=== PATIENT | female | born 1975 | race Caucasian/White ===

== ENCOUNTER → 2018-02-07 16:59 | Outpatient (CLI) | payer OTHER, SELFPAY ==
[2018-02-12 08:36] LABS: HPV Reflexed? NOT INDICATED
== END ==
PROVIDERS: Visit Provider Obstetrics & Gynecology
DX: Z12.4 Encounter for screening for malignant neoplasm of cervix (principal)
CPT/HCPCS: 88175; G0145

== ENCOUNTER 2018-03-05 15:00 | Outpatient (RCR) | payer OTHER, SELFPAY ==
--- NOTE | 2018-02-07 09:27 | HP.PTEVAL_ITS ---
Patient's Visit Information KIMMIE PENA is a 42 year old F referred to Physical Therapy by Marisel Rowe DO with a diagnosis of Possible HS. Date of Evaluation: 02/07/18 Physical Therapist: Cherelle Luis - Visit Plan Frequency: 2x /Week Duration: 4 Weeks Plan: 2X/ week for 4 weeks for R HS and piriformis stretching, Prone press ups at end range, core stability and postural exercisesm HS strength wtih HEP and modalities PRN - Subjective Subjective: Pt reports that the past year she has had a lot of PF issues worse on the R side and she has been running but now she is having deep pain in her R buttock with sitting. It hurts jumping rope and box jumps and more the abrupt landing and taking off. If she runs for awhile she can not lift her leg up past a certain ( pain in her put with running).... She reports that she does have some achy back pain.... not a huge pain. No pain with sitting but when gets out of the car and by the time she gets up 3 flights of stairs it hurts. IF she is up around the house.... if she walks after a few blocls. She has N&T after been walking or running for awhile. Pt just called and asked to refer to PT. - Pain R buttock pain Pain Intensity (Out of 10): 0 Pain Intensity Range: 5 Comment: With running - Objective Gait: Walks with normal gait pattern. LE MMT: hip flex B 4+/5, B hip abd 4+/5 , B hip ext 4/5, B knee ext 4/5, B knee flex 4/5. Pt is able to heel and toe walk. Pt has normal leg length. Palpation: Tender along the R piriformis and R Ischial Tuberosity. Increase R HS tightness at extremem end range. Tight and slight pain at end range piriformis stretch. Did 3 X 10 prone press ups and was able to stretch R HS into more ROM with ease. Normal L-trunk AROM - Goals Goal 1:: I HEP Goal Time Frame: 4-6 Weeks Goal 2:: Return to running with no R HS pain Goal Time Frame: 4-6 Weeks Goal 3:: Be able to go up and down stairs (3 flights at work) without pain Goal Time Frame: 4-6 Weeks - Rehabilitation Potential Rehabilitation Potential: Good - Anticipated Interventions Thank you for the opportunity to evaluate your patient. For Medicare and Medicare HMO plans, please review the plan of care and approve it. It will need to be FAXED BACK to us at [phone] for Medicare purposes. Please let me know if there are questions or concerns regarding this plan of care. Physician Signature: Date:
--- NOTE | 2018-07-18 08:46 | HP.PT.NRP ---
HP - Discharge Summary (1) - Patient Information September BECKY was seen in my office for initial evaluation on 02/07/18. The following Plan of Care was established for this patient: Initial Frequency: 2x /Week Initial Duration: 4 Weeks This patient was last seen in our office 03/11/18. Pertinent comments regarding their Physical therapy will appear below: DC PT At this point I will be discontinuing this patient from physical therapy. I would be happy to see this patient again in the future if found appropriate by the physician. Thank you! Cherelle Luis, MPT
== END 2018-03-05 19:00 | disposition home or self-care (01) ==
LOC: PT 15:00
PROVIDERS: Family Provider Family Medicine; PCP Family Medicine; Visit Provider Family Medicine
DX: M79.604 Pain in right leg (principal)
CPT/HCPCS: 97110; 97161

== ENCOUNTER → 2018-05-09 08:06 | Outpatient (CLI) | payer OTHER, SELFPAY ==
--- NOTE | 2018-05-09 08:09 | BI_ITS ---
MAMMOGRAPHY - BILATERAL SCREENING REASON FOR EXAM: Female, 42 years old. Routine annual screening examination. PERTINENT HISTORY: Aunt with breast cancer. TECHNIQUE: Digital bilateral breast bozena (3D mammographic acquisition) in the CC and MLO projections. 2-D mediolateral oblique (MLO) and craniocaudad (CC) views of both breasts were obtained. CAD: Full Field Digital Mammography with Computer Added Detection was performed. COMPARISON: Comparison is made with prior mammogram dated December 29, 2012. FINDINGS: Breast Composition: The breasts are heterogeneously dense, which may obscure small masses. There are no dominant masses or suspicious calcifications. No other significant abnormalities are identified. There has been no significant change since the prior study. BI/SCREENING MAMM (CAD), BILAT IMPRESSION: Stable bilateral screening mammogram. Yearly follow-up mammogram recommended. (A) ASSESSMENT CATEGORY: BIRADS Category 1: Negative. A letter regarding these results will be sent to the patient by the facility within 30 days. Approximately 10% of breast cancers are not detected by mammography. A normal mammogram should not delay biopsy of a clinically suspicious abnormality. [id number] Electronically Signed: Josiah Jameson MD at 8:41 EST Tel [phone], Service support ,
== END ==
PROVIDERS: Family Provider Family Medicine; PCP Family Medicine; Referring Provider Obstetrics & Gynecology; Visit Provider Obstetrics & Gynecology
DX: Z12.31 Encounter for screening mammogram for malignant neoplasm of breast (principal)
CPT/HCPCS: 77063; 77067

== ENCOUNTER → 2020-01-26 11:29 | Outpatient (CLI) | payer OTHER, SELFPAY ==
--- NOTE | 2020-01-26 11:37 | RAD_ITS ---
STUDY: X-RAY - RIGHT FOOT CLINICAL: Female, 44 years old. PATIENT DROPPED SOMETHING HEAVY ON TOP OF RIGHT FOOT TODAY. PAIN AND SWELLING TOP OF RIGHT FOOT DISTALLY. TECHNIQUE: 3 view(s) of the foot. COMPARISON: None. FINDINGS: Normal talus, calcaneus, and tarsal bones. Normal visualized subtalar, talonavicular, calcaneocuboid, tarsal and tarsometatarsal articulations. Normal metatarsi. Normal metatarsophalangeal joint of the great toe. Normal tibial and fibular sesamoid bones. Normal interphalangeal joint of the great toe. Normal phalanges of the great toe. Normal second through fifth metatarsophalangeal joints. Normal interphalangeal joints and phalanges of the lesser toes. The soft tissue structures are unremarkable. RAD/Foot min 3 Views IMPRESSION: Normal x-ray examination of the foot. Electronically Signed: Sincere Gilmore MD at 11:59 EDT Tel , Service support ,
== END ==
PROVIDERS: PCP Family Medicine; Referring Provider Family Medicine; Visit Provider Family Medicine
DX: M79.671 Pain in right foot (principal)
CPT/HCPCS: 73630

== ENCOUNTER → 2020-03-11 06:46 | Outpatient (CLI) | payer OTHER, SELFPAY ==
[2017-08-13 17:24] VITALS: BMI 36.1
[2020-03-11 08:05] LABS: ALB/GLOB Ratio 1.2 RATIO (0.9-2.4); AST(SGOT) 20 U/L (15-37); Alanine Aminotransfer ALT/SGPT 25 U/L (13-56); Alkaline Phosphatase 61 U/L (45-117); Anion Gap 4 (5-15); BUN 10 mg/dL (7-18); BUN/Creat Ratio 10.8 RATIO (10-20); Chloride 106 mmol/L (98-107); Cholesterol 156 mg/dL (200); Creatinine, Serum 0.93 mg/dL (0.55-1.02); EST Glomerular Filtration Rate 70 mL/min (>60); Est Glom Filt Rate - Afr Amer 85 mL/min (>60); Globulin 3.4 g/dL (2.2-4.2); Glucose 100 mg/dL (74-106); High Density Lipoprotein 50 mg/dL; Potassium 3.7 mmol/L (3.5-5.1); Protein, Total 7.4 g/dL (6.4-8.2); Sodium Level 136 mmol/L (136-145); Triglycerides 77 mg/dL; Very Low Density Lipoprotein 15 mg/dL (5-40)
== END ==
PROVIDERS: PCP Family Medicine; Visit Provider Family Medicine
DX: Z13.220 Encounter for screening for lipoid disorders (principal); Z13.1 Encounter for screening for diabetes mellitus
CPT/HCPCS: 36415; 80053; 80061

== ENCOUNTER → 2020-04-01 15:03 | Outpatient (CLI) | payer OTHER, SELFPAY ==
--- NOTE | 2020-04-01 15:12 | BI_ITS ---
MAMMOGRAPHY - BILATERAL SCREENING REASON FOR EXAM: Female, 44 years old. Routine annual screening examination. PERTINENT HISTORY: Aunts with breast cancer. TECHNIQUE: Digital bilateral breast johanna (3D mammographic acquisition) in the CC and MLO projections. 2-D mediolateral oblique (MLO) and craniocaudad (CC) views of both breasts were obtained. CAD: Full Field Digital Mammography with Computer Added Detection was performed. COMPARISON: Comparison is made with prior study dated 05/09/2018 and 06/08/2013. FINDINGS: Breast Composition: The breasts are heterogeneously dense, which may obscure small masses. There are no dominant masses or suspicious calcifications. No other significant abnormalities are identified. There has been no significant change since the prior study. BI/SCREEN MAMM (CAD) W/JOHANNA BILAT IMPRESSION: Stable bilateral screening mammogram. Yearly follow-up mammogram recommended. (A) ASSESSMENT CATEGORY: BIRADS Category 1: Negative. A letter regarding these results will be sent to the patient by the facility within 30 days. Approximately 10% of breast cancers are not detected by mammography. A normal mammogram should not delay biopsy of a clinically suspicious abnormality. [id number] Electronically Signed: Josiah Jameson, at 16:03 EDT , Service support ,
== END ==
PROVIDERS: PCP Family Medicine; Referring Provider Family Medicine; Visit Provider Family Medicine
DX: Z12.31 Encounter for screening mammogram for malignant neoplasm of breast (principal)
CPT/HCPCS: 77063; 77067

== ENCOUNTER → 2020-04-14 | Outpatient (CLI) | payer OTHER, SELFPAY ==
[2017-08-13 17:24] VITALS: BMI 36.1
[2020-04-20 13:58] LABS: HPV Reflexed? NOT INDICATED
== END | disposition home or self-care (01) ==
LOC: LABSPEC 04-15 09:09
PROVIDERS: PCP Family Medicine; Visit Provider Obstetrics & Gynecology
DX: Z12.4 Encounter for screening for malignant neoplasm of cervix (principal)
CPT/HCPCS: 88175; G0145

== ENCOUNTER → 2020-05-05 13:24 | Outpatient (CLI) | payer SELFPAY ==
[2020-04-27 15:46] VITALS: BMI 34.9
--- NOTE | 2020-05-05 13:29 | CT_ITS ---
STUDY: CT CHEST WITHOUT CONTRAST REASON FOR EXAM: Female, 44 years old. Calcium screening, family hx cardiac disease. Limited CT Chest over-read ONLY. RADIATION DOSAGE (If Supplied By Facility): CTDIvol = ( 12.19 ) mGy, DLP = ( 170.66 ) mGycm TECHNIQUE: Transaxial imaging was performed without the administration of intravenous contrast material. Individualized dose optimization techniques were used for this CT. COMPARISON: None. FINDINGS: Minimal linear scarring and/or atelectasis at the left lung base. There is no demonstrated pleural abnormality. Normal heart and pericardium. Normal mediastinum. Normal hilar regions. Normal unenhanced pulmonary arteries. Normal aorta arch and descending thoracic aorta. Normal osseous structures. Small hiatal hernia. CT/Limited Chest CT w/CCTA IMPRESSION: Minimal linear scarring and/or atelectasis at the left lung base.. Electronically Signed: Josiah Jameson, at 8:23 EST , Service support ,
[2020-05-05 13:32] VITALS: BP 158/93; PULSE 69; RESP 16; O2SAT 98; BMI 38.2
--- NOTE | 2020-05-05 15:52 | CA.SCORE ---
Calcium Scoring Date of Study:: 05/05/20 Coronary Calcium Scoring: High-resolution Computed Tomographic imaging of the chest was performed on [05/05/2020], with particular attention paid to the coronary arteries. Images from the examination were analyzed for the presence and extent of coronary artery calcification , using coronary calcium quantification software. The patient tolerated the procedure well and there were no complications. The results of the coronary calcification analysis are provided below. - Findings Left Main (LM): 0 Left Anterior Descending (LAD): 0 Left Circumflex (LCX): 0 Right Coronary Artery (RCA): 0 Total Agatston Score: 0 Percentile Rankin Calcium Scoring Interpretation: 0 No identifiable atherosclerotic plaque. Very low cardiovascular disease risk. <5% chance of presence coronary artery disease A Negative Examination 1-10 Minimal Plaque burden. Significant coronary artery disease very unlikely. 11-100 Mild plaque burden. Likely mild or minimal coronary atherosclerosis. 101-400 Moderate plaque burden Moderate non-obstructive coronary artery disease highly likely. Over 400 Extensive plaque burden. High likelihood of at least one significant coronary stenosis (>50% diameter) Calcium Score: 0 Negative Examination - The above suggests no atherosclerotic plaquing. A full evaluation of cardiac risk would include an assessment of all conventional risk factors. The above is suggestive of a very low cardiovascular disease risk.
== END ==
PROVIDERS: PCP Family Medicine; Referring Provider Internal Medicine Cardiovascular Disease; Visit Provider Internal Medicine Cardiovascular Disease
DX: Z13.6 Encounter for screening for cardiovascular disorders (principal); Z82.49 Family history of ischemic heart disease and other diseases of the circulatory system
CPT/HCPCS: 75571; 76380

== ENCOUNTER → 2020-05-20 13:49 | Outpatient (CLI) | payer OTHER, SELFPAY ==
[2020-05-05 13:32] VITALS: BMI 38.2
--- NOTE | 2020-05-20 13:54 | ECHOD_ITS ---
Version 2 Reason For Study: HYPERTENSION Procedure This was a 2D Doppler, Color Flow transthoracic echocardiogram. Exam performed in department. Left Ventricle Normal LV size. Left ventricular systolic function is normal. The estimated ejection fraction is 60 %. No regional wall motion abnormalities noted. Right Ventricle Normal RV size. Normal systolic function. Atria Normal left atrium. Normal right atrium. Bubble contrast study negative for right to left interatrial shunt. Mitral Valve Normal mitral valve. Trivial mitral valve insufficiency. Tricuspid Valve Normal tricuspid valve. Mild tricuspid valve insufficiency. Aortic Valve Normal aortic valve. Trisinus/trileaflet aortic valve. Pulmonic Valve Normal pulmonic valve. Great Vessels Normal aortic root. The pulmonary artery is normal size. Normal inferior vena cava. Pericardium/Pleural No pericardial effusion. Medication 22 gauge I.V. with prn adaptor inserted into right arm. Performed a rapid injection of agitated mix of 9 cc saline and 1cc air to assess for atrial septal defect. MMode/2D Measurements & Calculations LVIDd: 5.3 cm IVSd: 0.85 cm Ao root diam: 3.3 cm LVIDs: 3.4 cm LVPWd: 0.94 cm RVDd: 3.5 cm FS: 35.8 % LAV(MOD-bp): 50.6 ml LVAd ap4: 35.9 cm2 SV(MOD-sp4): 69.8 ml LAV(MOD-bp) Indexed: 26.4 ml/m2 EDV(MOD-sp4): 118.5 ml LAV(MOD-sp2): 49.2 ml EDV(sp4-el): 124.3 ml LAV(MOD-sp4): 49.3 ml LVAs ap4: 20.4 cm2 ESV(MOD-sp4): 48.7 ml ESV(sp4-el): 48.2 ml EF(MOD-sp4): 58.9 % EF(sp4-el): 61.2 % SV(sp4-el): 76.1 ml LA A4 area: 18.3 cm2 LA dimension(2D): 3.4 cm RA A4 area: 16.4 cm2 Time Measurements MV dec time: 0.19 sec Doppler Measurements & Calculations MV E max shravan: 72.2 cm/sec Lat Peak E' Shravan: 16.3 cm/sec Med Peak E' Shravan: 11.4 cm/sec MV A max shravan: 49.5 cm/sec E/E' lat: 4.4 E/E' med: 6.3 MV E/A: 1.5 Ao V2 max: 134.6 cm/sec LV V1 max: 105.1 cm/sec PA V2 max: 99.3 cm/sec Ao max P.3 mmHg LV V1 max P.4 mmHg TR max shravan: 235.2 cm/sec TR max P.1 mmHg Interpretation Summary Normal LV size. Left ventricular systolic function is normal. The estimated ejection fraction is 60 %. Bubble contrast study negative for right to left interatrial shunt. Mild tricuspid valve insufficiency. Ordering Physician: Sreekanth Garcia Referring Physician: LULU CONNOR Performed By: Traci Petersen RDCS
== END ==
PROVIDERS: PCP Family Medicine; Referring Provider Internal Medicine Cardiovascular Disease; Visit Provider Internal Medicine Cardiovascular Disease
DX: R03.0 Elevated blood-pressure reading, without diagnosis of hypertension (principal)
CPT/HCPCS: 93306; A4216

== ENCOUNTER 2020-10-03 15:30 | Outpatient (RCR) | payer OTHER, SELFPAY ==
[2020-05-05 13:32] VITALS: BMI 38.2
--- NOTE | 2020-09-09 08:01 | HP.OTEVAL_ITS ---
Patient's Visit Information KIMMIE PENA is a 44 year old F, referred to Occupational Therapy by AUTUMN SANCHEZ, with a diagnosis of left hand fx. Date of Evaluation: 09/09/20 Occupational Therapist: Abeba Cotto, OTR/Aisha, CHT - Subjective This 44 year old female was seen for OT eval left displaced fx shaft of 3rd metacarpal bone.- pt had fall 6 weeks ago going up steps-was placed in cast for 4 weeks DOI 08/01/20. pt states her hand feels stiff and tight- orders from are for ROM/PROM strengthening exercises and stretching. Pt states she would like to return to her PLOF of [place] and works as a police records clerk. - Pain left hand 0 Pain Intensity Range: 5 - ROM MP: right MF 0/80 left 0/75 PIP: right MF 0/105 left 0/75 ROM Comments: pt demo with ability to form a composite fist however painful at her end range. pts currentl ROM is less than unaffected hand - Strength Manager Of Customer Billing: right 85# left 55# Lateral Pinch: right 16# left 14# Tripod Pinch: right 14# left 10# - Quick DASH-Disab of Arm,Shoulder& Hand Quick DASH Score: 48.3325 - Goals Goal:: pt will demo a increase in left traveling sales representative strength by 30# or greater to increase pts ind. with ADLs and IADls by dc Goal:: pt will demo a increase in PIP and MCP ROM by 15* or greater to increase pts tight composit first for grasping objects or manipulation of items IND by d/c Goal:: pt will report pain no greater than 1/10 with use of left hand with ADLs and IADLs by d/c - Rehabilitation General Assessment: pt demo with limited left hand composite fist and strength to perform her ADLs and IADLs. Pt would benefit from skilled OT services 1-2x week for 4 weeks to increase pts functional strength to return to work and her ADls at IND, level Rehabilitation Potential: Good - Anticipated Interventions A/AAROM/PROM, Strengthening, Triggerpoint Release, Modalities, Joint Protection/Energy Conservation, Ergonomic Education - Visit Plan Frequency: 1-2x /Week Duration: 6 Weeks TEXT: Thank you for the opportunity to evaluate your patient. For Medicare and Medicare HMO plans, please review the plan of care and approve it. It will need to be FAXED BACK to us at [phone] for Medicare purposes. Please let me know if there are questions or concerns regarding this plan of care. Physician Signature: Date:
--- NOTE | 2020-10-05 12:49 | HP.OTDCSUM ---
It has been my pleasure to treat KIMMIE PENA under orders from AUTUMN SANCHEZ, for the diagnosis of left hand fx for a total of 6 visit(s). Please see the following information for a summary of their discharge status. % Improvement: 90 Objective/Function: L Rope Making Machine Operator 58#. R Rope Making Machine Operator 85#. L Lat PInch 10#. L Tripod Pinch 7#. pt demo functional grasp on a number of task different size objects- pt demo full composite fist. pt is ind with ADLs and IADLs. Patient Goals: Use Hand/Wrist/Arm Normally Again Goal:: pt will demo a increase in left manager planning strength by 30# or greater to increase pts ind. with ADLs and IADls by dc Goal:: pt will demo a increase in PIP and MCP ROM by 15* or greater to increase pts tight composit first for grasping objects or manipulation of items IND by d/c Goal:: pt will report pain no greater than 1/10 with use of left hand with ADLs and IADLs by d/c Plan: Discharged Discharge Comments: pt has made great gains in her ROM and strength since her fx. pt has met OT goals and ahs returned to her PLOF with ADls and IADLs- pt d/c at this time to cont with HEP, and return to crossfit. If there are questions or concerns regarding this patient's occupational therapy, please fell free to call me at [phone]. Thank you for the referral of this patient. Sincerely, Abeba Cotto, OTR/L, CHT
== END 2020-10-03 19:00 | disposition home or self-care (01) ==
LOC: OT 15:30
PROVIDERS: PCP Family Medicine
DX: S62.323D Displaced fracture of shaft of third metacarpal bone, left hand, subsequent encounter for fracture with routine healing (principal)
CPT/HCPCS: 97110; 97140; 97166

== ENCOUNTER → 2021-05-19 15:53 | Outpatient (CLI) | payer OTHER, SELFPAY ==
[2021-05-19 17:50] LABS: Anion Gap 5 (5-15); BUN 12 mg/dL (7-18); BUN/Creat Ratio 14.8 RATIO (10-20); Calcium,Total 8.8 mg/dL (8.5-10.1); Chloride 106 mmol/L (98-107); Creatinine, Serum 0.81 mg/dL (0.55-1.02); EST Glomerular Filtration Rate 82 mL/min (>60); Est Glom Filt Rate - Afr Amer 99 mL/min (>60); Glucose 106 mg/dL (74-106); Potassium 3.5 mmol/L (3.5-5.1); Sodium Level 140 mmol/L (136-145)
== END ==
PROVIDERS: PCP Family Medicine; Visit Provider Nurse Practitioner Gerontology
DX: I10 Essential (primary) hypertension (principal)
CPT/HCPCS: 36415; 80048

== ENCOUNTER 2021-07-18 13:51 | Outpatient (CLI) | payer OTHER, SELFPAY ==
--- NOTE | 2021-07-18 13:53 | BI_ITS ---
MAMMOGRAPHY - BILATERAL SCREENING REASON FOR EXAM: Female, 45 years old. Routine annual screening examination. PERTINENT HISTORY: Aunts with breast cancer. TECHNIQUE: Digital bilateral breast johanna (3D mammographic acquisition) in the CC and MLO projections. 2-D mediolateral oblique (MLO) and craniocaudad (CC) views of both breasts were obtained. CAD: Full Field Digital Mammography with Computer Added Detection was performed. COMPARISON: Comparison is made with prior study dated 04/01/2020 and 05/09/2018. FINDINGS: Breast Composition: The breasts are heterogeneously dense, which may obscure small masses. There are no dominant masses or suspicious calcifications. Stable small benign-appearing bilateral axillary lymph nodes. No other significant abnormalities are identified. There has been no significant change since the prior study. BI/SCRN MAMM (CAD)W/JOHANNA BILAT IMPRESSION: Stable bilateral screening mammogram. Yearly follow-up mammogram recommended. (A) ASSESSMENT CATEGORY: BIRADS Category 2: Benign. A letter regarding these results will be sent to the patient by the facility within 30 days. Approximately 10% of breast cancers are not detected by mammography. A normal mammogram should not delay biopsy of a clinically suspicious abnormality. [id number] Electronically Signed: Josiah Jameson MD at 15:46 EST ,
== END 2021-07-18 23:59 | disposition short-term general hospital (02) ==
LOC: OPBI 13:52
PROVIDERS: PCP Family Medicine; Visit Provider Obstetrics & Gynecology
DX: Z12.31 Encounter for screening mammogram for malignant neoplasm of breast (principal)
CPT/HCPCS: 77063; 77067

== ENCOUNTER → 2021-11-06 | Outpatient (CLI) | payer OTHER, SELFPAY ==
[2021-11-06 10:03] LABS: Absolute Lymphocyte Count 2.07 X10^3/uL (0.83-4.51); Absolute Neutrophil Count 2.1 X10^3/uL (2.0-7.7); Basophil# 0.03 X10^3/uL; Basophil% 0.6 % (0-1); Eosinophil# 0.11 X10^3/uL; Eosinophils% 2.3 % (0-5); Hematocrit 37.5 % (37-47); Hemoglobin 13.1 g/dL (12.0-15.0); Lymphocyte # 2.07 X10^3/ul (0.83-4.51); Lymphocyte % 42.9 % (19-41); Mean Corp Hgb Conc 34.9 g/dL (32-36); Mean Corpuscular Hgb 30.5 pg (27.0-32.0); Mean Corpuscular Volume 87.2 fL (81-99); Mean Platelet Vol. 10.7 fl (6.2-12.0); Monocyte# 0.48 X10^3/uL; NRBC Flagged by Analyzer 0 % (0-5); Neutrophil # 2.12 X10^3/uL (2.7-7.7); Platelet Count 238 K/mm3 (150-450); RBC Distribution Width CV 12.7 % (11.6-14.6); RBC Distribution Width SD 40.5 fl (35.1-43.9); White Blood Count 4.8 K/mm3 (4.4-11.0)
[2021-11-06 10:37] LABS: ALB/GLOB Ratio 1.2 RATIO (0.9-2.4); AST(SGOT) 15 U/L (15-37); Alanine Aminotransfer ALT/SGPT 24 U/L (13-56); Albumin, Serum 3.8 g/dL (3.2-5.0); Alkaline Phosphatase 64 U/L (45-117); Anion Gap 6 (5-15); BUN 12 mg/dL (7-18); BUN/Creat Ratio 13.2 RATIO (10-20); Calcium,Total 9.3 mg/dL (8.5-10.1); Chloride 104 mmol/L (98-107); Cholesterol 161 mg/dL (200); Creatinine, Serum 0.91 mg/dL (0.55-1.02); EST Glomerular Filtration Rate 71 mL/min (>60); Est Glom Filt Rate - Afr Amer 86 mL/min (>60); Globulin 3.3 g/dL (2.2-4.2); Glucose 98 mg/dL (74-106); High Density Lipoprotein 43 mg/dL; Potassium 3.6 mmol/L (3.5-5.1); Protein, Total 7.1 g/dL (6.4-8.2); Sodium Level 139 mmol/L (136-145); Triglycerides 141 mg/dL; Very Low Density Lipoprotein 28 mg/dL (5-40)
== END | disposition home or self-care (01) ==
PROVIDERS: PCP Family Medicine; Referring Provider Family Medicine; Visit Provider Family Medicine
DX: Z00.00 Encounter for general adult medical examination without abnormal findings (principal)
CPT/HCPCS: 36415; 80053; 80061; 85025

== ENCOUNTER 2021-12-14 12:54 | Day surgery (SDC) | payer OTHER, SELFPAY ==
[2021-12-14] VITALS (7 sets, daily range): BP systolic 116–132; BP diastolic 71–84; PULSE 60–70; RESP 16; TEMP 36.1–37.2; O2SAT 93–100; BMI 35.9
--- NOTE | 2021-12-14 13:23 | HP.PCM_ITS ---
HPI - General HPI Narrative KIMMIE PENA, is a 46 F who presents for surgical intervention for her stress urinary incontinence. Informed consent has been obtained. [facility] Medical History (Updated 12/14/21 @ 13:[address] MD) Blood disorder Celiac disease Hypertension Obesity Paresthesia and pain of right extremity PONV (postoperative nausea and vomiting) Restless legs WAN (stress urinary incontinence, female) Wears contact lenses Home Medications lisinopril 30 mg tablet 30 mg PO DAILY #90 tabs 07/18/21 [Rx Last Taken Unknown] hydrochlorothiazide 25 mg tablet 25 mg PO DAILY #90 tabs 11/17/21 [Rx Last Taken Unknown] hydroxyzine HCl 10 mg tablet 1 tab PO QHS 12/07/21 [History Last Taken Unknown] Allergy/AdvReac Type Severity Reaction Status Date / Time Penicillins Allergy Severe Rash Verified 12/14/21 13:16 Sulfa (Sulfonamide Allergy Severe Unknown Verified 12/14/21 13:16 Antibiotics) gluten Allergy Other Verified 12/14/21 13:16 Family History Brother , 51 Myocardial infarction, Onset Age: 78 Father CAD (coronary artery disease) CABG x 5, Coronary stents Myocardial infarction Grandmother , Age 62 Myocardial infarction Surgical History History of herniorrhaphy History of tubal ligation Social History Smoking Status: Never smoker alcohol intake: never ROS Constitutional Constitutional: Denies fatigue, fever(s), frequent falls or night sweats Eyes Eyes: Reports systems reviewed and no addt'l complaints, except as documented ENT HEENT: Reports systems reviewed and no addt'l complaints, except as documented Cardiovascular Cardiovascular: Denies chest pain, dizziness or dyspnea Respiratory/Chest Respiratory/Chest: Denies chest congestion, dyspnea, inability to speak or productive cough Gastrointestinal Gastrointestinal: Reports systems reviewed and no addt'l complaints, except as documented Genitourinary Genitourinary: Reports urinary incontinence Musculoskeletal Musculoskeletal: Reports systems reviewed and no addt'l complaints, except as documented Integumentary Integumentary: Reports systems reviewed and no addt'l complaints, except as documented Neurologic Neurologic: Reports systems reviewed and no addt'l complaints, except as documented Psychiatric Psychiatric: Reports systems reviewed and no addt'l complaints, except as documented Endocrine Endocrinology: Reports systems reviewed and no addt'l complaints, except as documented Hematologic/Lymphatic Hematologic/Lymphatic: Reports systems reviewed and no addt'l complaints, except as documented Allergic/Immunologic Allergic/Immunologic: Reports systems reviewed and no addt'l complaints, except as documented Physical Exam Const alert, oriented x3 and no apparent distress General Appearance: cooperative, comfortable and well kempt HEENT normocephalic, head/scalp atraumatic, hearing grossly normal bilaterally, external ears normal and external nose normal Eyes General Eye: normal appearance of both eyes Neck supple General: trachea midline Lymph Lymphatic: no lymphedema noted Chest inspection of chest normal Chest: symmetrical chest wall rise Resp normal respiratory effort, normal air movement and no retractions Effort and Inspection: able to speak in complete sentences Cardio regular rate and regular rhythm GI soft to palpation, non-tender and non-distended no CVA tenderness Back/Spine no CVA tenderness Extremity normal to inspection Skin no rashes or lesions noted, skin turgor normal, no jaundice, no petechiae and no mottling Neuro oriented x3, CN's II-XII intact bilaterally and moves all extremities Psych mental status grossly normal, thought process normal and cooperative Assessment & Plan Assessment/Plan (1) WAN (stress urinary incontinence, female): PLAN: Plan Proceed with mid urethral sling insertion, cystoscopy
[2021-12-14] MEDS: Lactated Ringers 1,000 ML 30 ML IV (13:35)
--- NOTE | 2021-12-14 13:54 | DCINST_ITS ---
Discharge Instructions Diet Discharge Diet: No restrictions Activity Discharge Activity: May Drive (When not taking pain medications, must be at least 24 hours after anesthesia) and May Shower May resume sexual activity in: 4 weeks Lifting Restrictions: 5 pounds Additional Activity Instructions:: No strenuous activity, no exercise, no sexual activity, nothing per vagina for 4 weeks Dressing / Incision Call your doctor if your incision/area has: Continuous Slow Oozing, Sudden Increased Bleeding, Increased Pain/ Swelling and Foul Smelling Discharge Call your doctor if you observe: Fever of 101 or Higher, Inability to urinate and Inability to have a bowel movement Follow Up Care Please Follow Up With: Rahel Lane MD When: Call the office for appointment Test Results: Test results from this visit will be discussed in further detail at your follow- up appointment, if applicable. Discharge Plan Admission Attending Provider: Rahel Lane Primary Care Provider: Marisel Rowe Discharge Orders/Prescriptions Prescriptions: New oxycodone-acetaminophen [oxycodone-acetaminophen] 5-325 mg tablet 1 tab PO Q8H PRN PRN (Reason: Pain) 3 Days Qty: 10 0RF cephalexin [cephalexin] 500 mg capsule 500 mg PO Q12 3 Days Qty: 6 0RF Continued hydrochlorothiazide 25 mg tablet 25 mg PO DAILY Qty: 90 3RF hydroxyzine HCl 10 mg tablet 1 tab PO QHS lisinopril 30 mg tablet 30 mg PO DAILY Qty: 90 3RF Referrals / Follow Up: Marisel Rowe DO [Primary Care Provider] - Disposition Disposition (needs filled in before D/C Order can be placed): Home, Self Care
--- NOTE | 2021-12-14 13:58 | OP.PCM_ITS ---
Report of Operation Date of Procedure: 12/14/21 Pre-Operative Diagnosis: Stress urinary incontinence Post-Operative Diagnosis: Same Surgery/Procedure Performed:: Mid urethral sling, cystourethroscopy Surgeon: Rahel Lane Type of Anesthesia: General Estimated Blood Loss (mL): 25cc Description of Procedure: The patient is a 46-year-old female with stress urinary incontinence who went underwent evaluation in the office now presents for surgical intervention. Informed consent has been obtained. The patient was taken to the operating room and placed on the operating table. Anesthesia monitored the head, neck, airway, IV access and vital signs throughout the case. Once anesthesia was appropriately administered, the patient was placed into dorsal lithotomy in T rendelenburg position. She was prepped and draped in usual sterile fashion. A sterile Epstein catheter was inserted to straight drain and the bladder was emptied. The mid urethra was isolated and injected submucosally with 1% lidocaine with epinephrine for hydrostatic dissection and hemostatic control. A vertical midline 2 cm incision was made and sharp and blunt dissection was performed on either side of the urethra, care being taken to avoid entrance into the urethra or the vaginal mucosa. Using the given trochars, the mid urethral sling was inserted using the tines into the obturator complexes bilaterally. The sling was placed against the urethra using the tensioning suture. The suture was then cut. The incision was closed using running interlocking 2-0 Vicryl suture. The Epstein catheter was removed and the cystoscope was inserted through the urethra under direct visualization into the urinary bladder. The bladder mucosa was visualized in its entirety as was the urethra. There were no injuries identified, no areas of hemorrhage or foreign body. At this time a small amount of fluid was left within the urinary bladder and the cystoscope was removed. The patient was awakened and taken to the recovery room in good condition. There were no complications during this procedure. Grafts/Implants Used: Altis mid urethral sling Complications None Admit VTE Documentation VTE Present on Admission: Yes VTE Mechan Device Prophylaxis: SCD's VTE Pharm Prophylaxis ordered?: No Reason prophylaxis not ordered:: Treatment Not Indicated
[2021-12-14] MEDS: Cefazolin 2 GM in 0.9% Normal Saline 100 ML IV (14:20)
--- NOTE | 2021-12-14 16:06 | SUR.PHASEII ---
THIS NURSE SPOKE WITH DR. FARRELL ON THE PHONE, PT VOIDED 250 AND HAD A POST VOID RESIDUAL OF 0. OK TO D/C PER DR. FARRELL
== END 2021-12-14 16:24 | disposition home or self-care (01) ==
LOC: SDC 12:54 → AC 13:23
PROVIDERS: PCP Family Medicine; Referring Provider Urology; Visit Provider Urology
PROC: 0TJB8ZZ Inspection of Bladder, Via Natural or Artificial Opening Endoscopic (ICD-10-PCS; CPT 57288; principal; 2021-12-14 14:45)
DX: N39.3 Stress incontinence (female) (male) (principal); I10 Essential (primary) hypertension; K90.0 Celiac disease; E66.9 Obesity, unspecified; Z79.899 Other long term (current) drug therapy; G25.81 Restless legs syndrome; Z68.35 Body mass index [BMI] 35.0-35.9, adult
CPT/HCPCS: 57288; 00860; J7120; J2405

== ENCOUNTER → 2022-10-12 | Outpatient (CLI) | payer OTHER, SELFPAY ==
[2022-10-12 06:46] LABS: Absolute Lymphocyte Count 2.46 X10^3/uL (0.83-4.51); Absolute Neutrophil Count 2.4 X10^3/uL (2.0-7.7); Basophil# 0.03 X10^3/uL; Basophil% 0.5 % (0-1); Eosinophil# 0.11 X10^3/uL; Hematocrit 40.5 % (37-47); Hemoglobin 13.7 g/dL (12.0-15.0); Lymphocyte # 2.46 X10^3/ul (0.83-4.51); Lymphocyte % 44.8 % (19-41); Mean Corp Hgb Conc 33.8 g/dL (32-36); Mean Corpuscular Hgb 29.8 pg (27.0-32.0); Mean Corpuscular Volume 88.2 fL (81-99); Monocyte# 0.52 X10^3/uL; Monocyte% 9.5 % (0-10); NRBC Flagged by Analyzer 0 % (0-5); Neutrophil # 2.35 X10^3/uL (2.7-7.7); Neutrophil % 42.8 % (47-70); Platelet Count 235 K/mm3 (150-450); RBC Distribution Width CV 12.8 % (11.6-14.6); RBC Distribution Width SD 41.3 fl (35.1-43.9); Red Blood Count 4.59 M/mm3 (4.2-5.4); White Blood Count 5.5 K/mm3 (4.4-11.0)
[2022-10-12 07:22] LABS: ALB/GLOB Ratio 1.2 RATIO (0.9-2.4); AST(SGOT) 26 U/L (15-37); Alanine Aminotransfer ALT/SGPT 39 U/L (13-56); Albumin, Serum 3.8 g/dL (3.2-5.0); Alkaline Phosphatase 63 U/L (45-117); Anion Gap 3 (5-15); BUN 15 mg/dL (7-18); BUN/Creat Ratio 18.2 RATIO (10-20); Calcium,Total 8.9 mg/dL (8.5-10.1); Chloride 105 mmol/L (98-107); Cholesterol 191 mg/dL (200); Creatinine, Serum 0.82 mg/dL (0.55-1.02); EST Glomerular Filtration Rate 80 mL/min (>60); Est Glom Filt Rate - Afr Amer 97 mL/min (>60); Free T3 2.8 pg/mL (2.18-3.98); Globulin 3.2 g/dL (2.2-4.2); Glucose 106 mg/dL (74-106); High Density Lipoprotein 53 mg/dL; Potassium 3.6 mmol/L (3.5-5.1); Sodium Level 137 mmol/L (136-145); T4 Free Direct 0.77 ng/dL (0.76-1.46); Thyroid Stim Hormone (TSH) 2.59 uIU/mL (0.358-3.74); Triglycerides 106 mg/dL; Very Low Density Lipoprotein 21 mg/dL (5-40)
== END | disposition home or self-care (01) ==
LOC: LAB 06:17
PROVIDERS: PCP Family Medicine; Referring Provider Family Medicine; Visit Provider Family Medicine
DX: Z00.00 Encounter for general adult medical examination without abnormal findings (principal); R53.83 Other fatigue; Z51.81 Encounter for therapeutic drug level monitoring
CPT/HCPCS: 36415; 80053; 80061; 84439; 84443; 84481; 85025

== ENCOUNTER → 2024-04-08 | Outpatient (CLI) | payer OTHER, SELFPAY ==
[2024-04-09 02:10] LABS: Vitamin D,25 Hydroxy 74.6 ng/mL
[2024-04-11 15:08] LABS: Endomysial Antibody IgA Negative (Negative); Immunoglobulin A < 5 mg/dL (87-352); t-Transglutaminase IgA <2 U/mL (0-3)
== END | disposition home or self-care (01) ==
PROVIDERS: PCP Family Medicine; Referring Provider Internal Medicine Gastroenterology; Visit Provider Internal Medicine Gastroenterology
DX: K90.0 Celiac disease (principal)
CPT/HCPCS: 36415; 82306; 82784; 83516; 86255

== ENCOUNTER 2024-08-06 16:20 | Outpatient (CLI) | payer OTHER, SELFPAY ==
--- NOTE | 2024-08-06 16:22 | BD_ITS ---
EXAM: CLINICAL INDICATION: Determine bone density. CLINICAL HISTORY: Screening for osteopenia/ osteoporosis COMPARISON: None TECHNIQUE: Bone densitometry of the lumbar spine and hips was performed using the HOLOGIC DEXA scanner. FINDINGS: Bone Density Measurements: SPINE AP Spine (L1-L4): 1.250 g/cm2 T-Score: 1.8 Z-Score: 2.4 WHO Classification: NORMAL LEFT FEMUR Femoral TOTAL (LEFT): 1.144 g/cm2 T-Score: 1.7 Z-Score: 2.0 WHO Classification: NORMAL Femoral NECK (LEFT): 0.919 g/cm2 T-Score: 0.6 Z-Score: 1.2 WHO Classification: NORMAL RIGHT FEMUR Femoral TOTAL (RIGHT): 1.113 g/cm2 T-Score: 1.4 Z-Score: 1.7 WHO Classification: NORMAL Femoral NECK (RIGHT): 0.901 g/cm2 T-Score: 0.5 Z-Score: 1.0 WHO Classification: NORMAL BD/Dexa Bone Density Study IMPRESSION: The patient demonstrates normal bone mineral density of the lumbar spine and anabella th hips. She is at low risk for fracture. The 10 year fracture risk index for a major osteoporotic fracture is 2.4% and f or a hip fracture is less than 0.1%. World Health Organization criteria for BMD interpretation classify patients as: Normal (T-score at or above -1.0), Osteopenic (T-score between -1.0 and -2.5),or Osteoporotic (T-score at or below -2.5). The presence of vertebral abnormalities such as scoliosis or osteophytes, or ao rtic/ligamentous calcifications can alter readings of the lumbar spine. In such cases, readings of the hips are more reliable. Reading Location: [id number]
== END 2024-08-06 23:59 | disposition home or self-care (01) ==
LOC: OPBD 16:20
PROVIDERS: PCP Family Medicine; Referring Provider Internal Medicine Gastroenterology; Visit Provider Internal Medicine Gastroenterology
DX: K90.0 Celiac disease (principal)
CPT/HCPCS: 77080

== ENCOUNTER → 2024-11-11 | Outpatient (CLI) | payer OTHER, SELFPAY ==
[2024-11-11 11:06] LABS: Absolute Lymphocyte Count 1.79 X10^3/uL (0.83-4.51); Absolute Neutrophil Count 2.3 X10^3/uL (2.0-7.7); Basophil# 0.03 X10^3/uL; Basophil% 0.6 % (0-1); Eosinophil# 0.07 X10^3/uL; Eosinophils% 1.5 % (0-5); Hemoglobin 13.7 g/dL (12.0-15.0); Lymphocyte # 1.79 X10^3/ul (0.83-4.51); Lymphocyte % 38.5 % (19-41); Mean Corp Hgb Conc 35.1 g/dL (32-36); Mean Corpuscular Hgb 30.3 pg (27.0-32.0); Mean Corpuscular Volume 86.3 fL (81-99); Mean Platelet Vol. 11.1 fl (6.2-12.0); Monocyte# 0.46 X10^3/uL; Monocyte% 9.9 % (0-10); NRBC Flagged by Analyzer 0 % (0-5); Neutrophil # 2.29 X10^3/uL (2.7-7.7); Neutrophil % 49.3 % (47-70); Platelet Count 247 K/mm3 (150-450); RBC Distribution Width CV 12.4 % (11.6-14.6); RBC Distribution Width SD 39.4 fl (35.1-43.9); Red Blood Count 4.52 M/mm3 (4.2-5.4); White Blood Count 4.7 K/mm3 (4.4-11.0)
[2024-11-11 13:23] LABS: ALB/GLOB Ratio 1.7 RATIO (0.9-2.4); AST(SGOT) 23 U/L (<=31); Alanine Aminotransfer ALT/SGPT 20 U/L (<=34); Albumin, Serum 4.5 g/dL (3.5-5.0); Alkaline Phosphatase 68 U/L (35-104); Anion Gap 12 (5-15); BUN 15 mg/dL (4-19); BUN/Creat Ratio 16.5 RATIO (10-20); Calcium,Total 9.7 mg/dL (7.6-11.0); Carbon Dioxide 23.7 mmol/L (21.0-32.0); Chloride 101 mmol/L (98-108); Cholesterol 186 mg/dL (<=200); Creatinine, Serum 0.88 mg/dL (0.70-1.20); EST Glomerular Filtration Rate 82 (>60); Globulin 2.7 g/dL (2.2-4.2); Glucose 107 mg/dL (70-99); High Density Lipoprotein 54 mg/dL; Low Density Lipoprotein Calc. 114 mg/dL; Potassium 3.6 mmol/L (3.3-5.1); Protein, Total 7.2 g/dL (5.9-8.4); Sodium Level 137 mmol/L (133-145); Total Bilirubin 0.34 mg/dL (0.00-1.30); Triglycerides 92 mg/dL; Very Low Density Lipoprotein 18 mg/dL (5-40); cholesterol:hdl ratio screen 3.46
== END | disposition home or self-care (01) ==
LOC: MTLAB 07:03
PROVIDERS: PCP Family Medicine; Referring Provider Family Medicine; Visit Provider Family Medicine
DX: Z00.00 Encounter for general adult medical examination without abnormal findings (principal); R73.01 Impaired fasting glucose; E78.5 Hyperlipidemia, unspecified
CPT/HCPCS: 36415; 80053; 80061; 85025

== ENCOUNTER → 2024-12-07 | Outpatient (CLI) | payer OTHER, SELFPAY ==
--- NOTE | 2024-12-07 14:39 | BI_ITS ---
EXAM: SCRN MAMM (CAD)W/JOHANNA BILAT DATE: 12/07/2024 CLINICAL HISTORY: F, Age 49 y/o , SCREENING BREAST CANCER RISK ASSESSMENT: Na TECHNIQUE: SCRN MAMM (CAD)W/JOHANNA BILAT COMPARISON: Prior exam(s) were compared FINDINGS: TISSUE DENSITY: The breast tissue is heterogeneously dense, which may obscure small masses. Bilateral Breast Mammographic Findings: No suspicious masses, calcifications or other abnormalities are identified. BI/SCRN MAMM (CAD)W/JOHANNA BILAT IMPRESSION: No mammographic evidence of malignancy in either breast OVERALL FINAL ASSESSMENT BI-RADS 1: NEGATIVE. RECOMMEND ANNUAL MAMMOGRAPHIC SCREENING. RECOMMENDATION: Routine annual follow-up in 1 Year A letter with findings and recommendations will be mailed to the patient. Reading Location: [id number]
== END | disposition home or self-care (01) ==
LOC: OPBI 14:38
PROVIDERS: PCP Family Medicine; Referring Provider Family Medicine; Visit Provider Family Medicine
DX: Z12.31 Encounter for screening mammogram for malignant neoplasm of breast (principal)
CPT/HCPCS: 77063; 77067

== ENCOUNTER → 2025-06-04 | Outpatient (CLI) | payer OTHER, SELFPAY ==
--- OUTSIDE RECORDS SUMMARY | 2025-06-04 07:14 | XMS RPT_ITS | CCD ---
Author Organization [facility] Care Team Providers Care Varnishing Unit Operator Name Role Phone Dr. Marisel Rowe Primary Care Provider Dr. Marisel Rowe Referring Provider [phone] Ye PHYSICAL THERAPY AIDES TEACHER, PHYSICAL THERAPY AIDES TEACHER-C Laura Attending Provider Jae GOMEZ, Dr. Joiner Primary Care Provider [phone]([facility])[phone] Dr. Gumaro Hooker MD Attending Provider Nhung BYERS, Dr. Naik Referring Provider Dr. Marisel Rowe DO Attending Provider Jae GOMEZ, Dr. Joiner Referring Provider Jae GOMEZ, Dr. Joiner Primary Care Provider [phone]([facility])[phone] Domingo BYERS, Dr. Mcginnsi Attending Provider [phone] Snow PHYSICAL THERAPY AIDES TEACHER-CChris Attending Provider Malys, Marisel Primary Care Unavailable Danny Elliott Attending Unavailable Malys, Marisel Referring Unavailable Malys, Marisel Attending Unavailable Malys, Marisel Referring Unavailable Malys, Marisel Primary Care Unavailable Malys, Marisel Attending Unavailable Malys, Marisel Referring Unavailable Malys, Marisel Primary Care Unavailable Gumaro Hooker Attending Unavailable Gumaro Hooker Referring Unavailable Malys, Marisel Primary Care Unavailable Roof PHYSICAL THERAPY AIDES TEACHER, Chris Santos Attending Unavailable Malys, Marisel Referring Unavailable Malys, Marisel Primary Care Unavailable Roof PHYSICAL THERAPY AIDES TEACHER, Chris Santos Attending Unavailable Malys, Marisel Referring Unavailable Malys, Marisel Primary Care Unavailable Rohan Fowler Attending Unavailable Malys, Marisel Primary Care Unavailable Malys, Marisel Referring Unavailable Allergies Allergy Classification Reported Allergen(s) Allergy Type Date of Onset Reaction(s) Facility (8 sources) Penicillins; Translations: [Penicillins] Allergy to substance 2 Unknown, Rash [facility] Comment on above: SOB (8 sources) Sulfonamides (Antibiotic); Translations: [Sulfa (Sulfonamide Antibiotics)] Allergy to substance [address] [facility] (6 sources) Wheat gluten extract Drug Allergy [address] [facility] Comment on above: Celiac (1 source) Gluten Drug allergy (disorder) 5 [facility] Repository Medications Current Medications Medication Drug Class(es) Dates Sig (Normalized) Sig (Original) escitalopram 5 mg oral tablet (5 sources) Serotonin Reuptake Inhibitor Start: 05-09-2022 take 1 tablet by mouth once daily Escitalopram Oxalate 5 mg tablet Active 5 mg PO DAILY May 09, 2022 1:00am multivitamin,tx-iro n-minerals tablet (1 source) Start: 08-13-2017 take 1 tablet by mouth once daily multivitamin,tx-iro n-minerals tablet Active 1 TABLET PO daily August 13, 2017 6:26pm RABEprazole sodium 20 mg delayed release oral tablet (3 sources) Proton Pump Inhibitor Start: 05-01-2024 take 1 tablet by mouth once daily Rabeprazole 20 mg tablet,delayed release (DR/EC) Active 20 mg PO daily May 01, 2024 1:00am rOPINIRole 1 mg oral tablet (3 sources) Nonergot Dopamine Agonist Start: 07-04-2023 take 1 tablet by mouth once daily Ropinirole 1 mg tablet Active 1 mg PO DAILY July 04, 2023 1:00am Completed/Discontinued Medications Medication Drug Class(es) Dates Sig (Normalized) Sig (Original) acetaminophen 325 mg / oxyCODONE hydrochloride 5 mg oral tablet (6 sources) Opioid Agonist Start: 12-14-2021 End: 05-09-2022 Oxycodone-Acetamino phen 5-325 mg tablet Discontinued 1 {tbl} PO EVERY 8 HOURS NEEDED as needed for Pain 10 3 0 December 14, 2021 May 09, 2022 12:00pm Stress incontinence in female Stress incontinence (female) (male) Start: 12-14-2021 End: 05-09-2022 take 1 tablet by mouth every eight hours as needed Oxycodone-Acetaminophen Discontinued 1 TABLET PO EVERY 8 HOURS NEEDED 10 3 December 14, 2021 May 09, 2022 12:00pm benzonatate 200 mg oral capsule (3 sources) Non-narcotic Antitussive Start: 06-23-2024 End: 01-25-2025 take 1 capsule by mouth three times daily as needed for cough Benzonatate 200 mg capsule Discontinued 200 mg PO THREE TIMES A DAY as needed for cough 20 June 23, 2024 1:00am January 25, 2025 3:38pm cephalexin 500 mg oral capsule (9 sources) Cephalosporin Antibacterial Start: 06-14-2023 End: 06-24-2023 take 1 capsule by mouth every twelve hours Cephalexin 500 mg capsule Discontinued 500 mg PO Q12H 20 June 14, 2023 1:00am June 23, 2023 1:00am June 24, 2023 1:04am Start: 12-14-2021 End: 05-09-2022 take 1 capsule by mouth every twelve hours Cephalexin 500 mg capsule Discontinued 500 mg PO EVERY 12 HOURS 6 3 December 14, 2021 12:00am May 09, 2022 12:00pm post-operative doxycycline monohydrate 100 mg oral capsule (9 sources) Tetracycline-class Drug Start: 06-23-2024 End: 01-25-2025 take 1 capsule by mouth twice daily Doxycycline Monohydrate 100 mg capsule Discontinued 100 mg PO TWICE A DAY 28 June 23, 2024 1:00am January 25, 2025 3:38pm Start: 05-01-2024 End: 05-11-2024 take 1 capsule by mouth twice daily Doxycycline Monohydrate 100 mg capsule Discontinued 100 mg PO TWICE A DAY 20 May 01, 2024 1:00am May 10, 2024 1:00am May 11, 2024 1:08am Start: 04-02-2023 End: 06-14-2023 take 1 capsule by mouth twice daily Doxycycline Monohydrate 100 mg capsule Discontinued 100 mg PO TWICE A DAY April 02, 2023 12:00am June 14, 2023 11:21am hydroCHLOROthiazide 25 mg oral tablet (20 sources) Thiazide Diuretic Start: 11-17-2021 End: 02-12-2024 Hydrochlorothiazide 25 mg tablet Discontinued 0 .ROUTE .COMPLEX August 21, 2022 11:27am July 04, 2023 4:00pm TAKE 1 TABLET DAILY Start: 10-31-2021 End: 11-17-2021 take 2 capsules by mouth once daily Hydrochlorothiazide 12.5 mg capsule Discontinued 25 mg PO DAILY October 31, 2021 10:06am November 17, 2021 11:47am Start: 10-31-2021 End: 11-17-2021 take 25 mg by mouth once daily Hydrochlorothiazide Discontinued 25 MG PO DAILY October 31, 2021 10:06am November 17, 2021 11:47am Start: 09-07-2021 End: 10-31-2021 take 1 capsule by mouth once daily Hydrochlorothiazide 12.5 mg capsule Discontinued 12.5 mg PO DAILY September 07, 2021 12:00am October 31, 2021 10:06am hydrOXYzine hydrochloride 10 mg oral tablet (6 sources) Antihistamine Start: 12-07-2021 End: 07-04-2023 Hydroxyzine Hcl 10 mg tablet Discontinued 1 {tbl} PO AT BEDTIME December 07, 2021 12:00am July 04, 2023 3:56pm Start: 12-07-2021 take 1 tablet by nnamdi th at bedtime Hydroxyzine Hcl Active 1 TABLET PO AT BEDTIME December 07, 2021 12:00am lisinopril 30 mg oral tablet (20 sources) Angiotensin Converting Enzyme Inhibitor Start: 07-18-2021 End: 03-02-2024 take 1 tablet by mouth once daily Lisinopril 30 mg tablet Discontinued 30 mg PO DAILY April 23, 2022 7:17pm July 04, 2023 4:00pm Start: 05-19-2021 End: 07-18-2021 take 1 tablet by mouth once daily Lisinopril 20 mg tablet Discontinued 20 mg PO DAILY May 19, 2021 4:44pm July 18, 2021 12:00pm Start: 05-06-2020 End: 05-19-2021 take 1 tablet by mouth once daily Lisinopril 10 mg tablet Discontinued 10 mg PO DAILY May 18, 2021 10:28am May 19, 2021 4:44pm meloxicam 15 mg oral tablet (7 sources) Nonsteroidal Anti-inflammatory Drug Start: 04-27-2020 End: 04-27-2020 take 1 tablet by mouth once daily Meloxicam 15 mg tablet Discontinued 15 mg PO DAILY April 27, 2020 1:00am April 27, 2020 4:40pm methylPREDNISolone 4 mg oral tablet (3 sources) Corticosteroid Start: 05-01-2024 End: 05-07-2024 take 1 tablet by mouth once Methylprednisolone (Medrol (Sebas)) 4 mg tablets,dose pack Discontinued 4 mg PO per package directions 21 6 0 May 01, 2024 1:00am May 06, 2024 1:00am May 07, 2024 1:09am oseltamivir 75 mg oral capsule (3 sources) Neuraminidase Inhibitor Start: 07-31-2023 End: 08-05-2023 take 1 capsule by mouth twice daily Oseltamivir 75 mg capsule Discontinued 75 mg PO TWICE A DAY 10 5 July 31, 2023 1:00am August 04, 2023 1:00am August 05, 2023 1:05am predniSONE 10 mg oral tablet (3 sources) Start: 06-23-2024 End: 01-25-2025 take 3 tablets by mouth once daily, then take 2 tablets by mouth once daily, then take 1 tablet by mouth once daily Prednisone 10 mg tablet Discontinued 10 mg PO DAILY 18 June 23, 2024 1:00am January 25, 2025 3:38pm 3 tablets daily x3 days, then 2 tablets daily x3 days, then 1 tablet daily x3 days vitamin b6 50 mg oral capsule (7 sources) Start: 08-13-2017 End: 04-27-2020 take 1 capsule by mouth once Pyridoxine (Vitamin B6) 50 mg capsule Discontinued 50 mg PO ONCE August 13, 2017 1:00am April 27, 2020 9:35am Problems Active Problems Problem Classification Problem Date Documented Da te Episodic/Chronic Acute bronchitis (3 sources) Acute bronchitis; Translations: [Acute bronchitis, unspecified] 04-02-2023 Episodic Essential hypertension (12 sources) Essential hypertension; Translations: [Essential (primary) hypertension] Chronic Fracture of upper limb (7 sources) Fracture of neck of metacarpal bone; Translations: [Displaced fracture of neck of third metacarpal bone, left hand, initial encounter for closed fracture] 08-01-2020 Episodic Genitourinary symptoms and ill-defined conditions (7 sources) Female stress incontinence; Translations: [Stress incontinence (female) (male)] Chronic Other circulatory disease (7 sources) Elevated blood-pressure reading without diagnosis of hypertension; Translations: [Elevated blood-pressure reading, without diagnosis of hypertension] 04-27-2020 Episodic Other ear and sense organ disorders (7 sources) Otalgia, left ear; Translations: [Left ear pain] 12-07-2021 Episodic Other gastrointestinal disorders (1 source) Celiac disease; Translations: [Celiac disease] Onset: 09-21-2024 Chronic Other lower respiratory disease (7 sources) Dyspnea on exertion; Translations: [Dyspnea, unspecified] 04-27-2020 Episodic Other upper respiratory infections (3 sources) Acute sinusitis; Translations: [Acute sinusitis, unspecified] 06-14-2023 Episodic Residual codes; unclassified (7 sources) Family history of coronary arteriosclerosis; Translations: [Family history of ischemic heart disease and other diseases of the circulatory system] 04-27-2020 Episodic Sprains and strains (7 sources) Injury of wrist; Translations: [Strain of unspecified muscle, fascia and tendon at wrist and hand level, left hand, initial encounter] 08-01-2020 Episodic Past or Other Problems Problem Classification Problem Date Documented Da te Episodic/Chronic Other screening for suspected conditions (not mental disorders or infectious disease) (1 source) Encounter for screening mammogram for malignant neoplasm of breast; Translations: [Encounter for screening mammogram for malignant neoplasm of breast] Onset: 12-11-2024 Episodic Results Test Name Value Interpretation Reference Range Facility Urgent Care Visit Reporton 1 06-25-2024 Urgent Care Visit Report [facility] [address], [address] [place] [address] OFFICE VISIT Date of Service: 04/25/25 MR#: [id number] Acct: [id number] Name: KIMMIE PENA Rep #: [id number] : 1975 Provider: REMI dooley Age/Sex: 49/F Location: [facility] Status: Signed Intake Vital Signs 01/25/25 15:34 04/25/25 12:58 Height 5 ft Weight: 192 lb BMI 37.5 BP 134/82 H 130/82 H Blood Pressure Location Lt brachial Lt brachial Position Sitting Sitting Respiration 16 Pulse 80 75 Pulse Source Monitor Monitor Temp 98.3 F Temp Source Oral Pulse Oximetry (%) 97 Oxygen Delivery Method room air Intake Visit Reasons: CONCERN FOR STREP THROAT Chief Complaint: Sore Throat Accompanied by: Self Allergies Penicillins Allergy (Severe, Verified 04/25/25 12:55) Rash Sulfa (Sulfonamide Antibiotics) Allergy (Severe, Verified 04/25/25 12:55) Unknown gluten Allergy (Verified 04/25/25 12:55) Other Medications ???Medication ???Instructions ???Recorded ???Confirmed ???Type escitalopram oxalate 5 mg tablet 5 mg PO DAILY 05/09/22 04/25/25 Hi story ropinirole 1 mg tablet 1 mg PO DAILY 07/04/23 04/25/25 Hi story hydrochlorothiazide 25 mg tablet See Rx Instructions .Route 4 04/25/25 Rx .COMPLEX #90 tabs rabeprazole 20 mg tablet,delayed 20 mg PO QDAY 05/01/24 04/25/25 Hi story release lisinopril 30 mg tablet 30 mg PO DAILY #90 TABLETS 5 04/25/25 Rx doxycycline hyclate 100 mg capsule 100 mg PO BID 7 days #14 caps 04/25/25 Rx prednisone 20 mg tablet 40 mg (2 x 20 mg) PO QDAY 5 days 1 06/25/24 04/25/25 Rx #10 tabs Nurse's Note: Sore throat. X 5 days. [facility] Medical History Acute bronchitis, unspecified History of anemia WAN (stress urinary incontinence, female) Wears contact lenses Blood disorder Restless legs Hypertension PONV (postoperative nausea and vomiting) Celiac disease Obesity Paresthesia and pain of right extremity Surgical History History of bladder suspension procedure History of carpal tunnel release History of herniorrhaphy History of tubal ligation Family History Brother , 51 Myocardial infarction, Onset Age: 78 Father CAD (coronary artery disease) CABG x 5, Coronary stents Myocardial infarction Grandmother , Age 62 Myocardial infarction Social History Smoking Status: Never smoker alcohol intake: never HPI HPI Chief Complaint: Sore Throat Details: ann marie AMOS a 49 F who presents to the office today for concerns regarding sore throat for last 5 days. Prior to evaluation she underwent strep testing that was negative. She states headaches. She has taken OTC medications to help with symptoms. ROS Const Constitutional: Positive for night sweats; No body ache, chills, fatigue, fever(s), headache(s) or change in appetite Eyes Eyes: No blurry vision, change in vision, double vision, irritation, discharge, vision loss, dry eyes, bulging eyes, floaters, visual disturbances, eye pain, Light sensitivity, spots in vision, tunnel vision or other ENT ENT: Positive for sore throat; No ear or mastoid pain, ear discharge, ear pressure, tinnitus, dizziness/vertigo, nosebleed/epistaxis , nasal congestion, nose pain, sinus pressure, sinus pain, nasal discharge, post nasal drip, headache(s), facial pain, dental pain, difficulty swallowing, bad breath, hoarseness, lip swelling, mouth lesions, mouth pain, neck pain, tongue swelling or throat swelling Resp Respiratory: No cough, change in phlegm color, chest congestion, hemoptysis, pain on inspiration, shortness of breath, pain with cough, stridor or wheezing Cardio Cardiology: No chest pain at rest, chest pain with exertion, shortness of breath, dyspnea on exertion or lightheadedness Gastro GI: No abdominal pain, change in bowel habits, constipation, diarrhea, difficulty swallowing, nausea/dyspepsia or vomiting Genitourinary-Femal e: No burning urination or urinary frequency Musc Musculoskeletal: No joint pain or neck pain Skin Skin: No rash Neuro Neurology: No headache(s) or visual disturbances Psych Psychiatric: No change in appetite Endo Endocrine: No fatigue Aller/Imm Allergy/Immunologic : No lip swelling, throat swelling, tongue swelling or wheezing Exam Const General: cooperative, healthy appearing, comfortable and no acute distress Orientation: alert, awake and oriented x3 HENMT Head: normal to inspection and normocephalic Ears: hearing grossly normal bilaterally, external ears normal and TM's normal bilatera (more content not included)... Normal [facility] Cardiology Visit Reporton Cardiology Visit Report [facility] [address] [place] [address] OFFICE VISIT Date of Service: 01/25/25 MR#: [id number] Acct: [id number] Name: KIMMIE PENA Rep #: [id number] : 1975 Provider: REMI dooley Age/Sex: 49/F Location: [facility] Status: Signed HPI HPI History of Present Illness Details: This is a pleasant 49-year-old lady who presents to the office today for a cardiovascular visit. She has a significant family history of coronary artery disease. Her brother from myocardial infarction at age 51 after sustaining a first myocardial infarction at 48. Her father had a history of coronary artery disease, and . She has a history of hypertension. She is quite active participating in [employer] activities 3-4 times a week, and walks an average of 15,000 steps daily. She did undergo an echocardiogram which demonstrated preserved ejection fraction as well as a CT angiogram which demonstrated no obstruction and a coronary calcium score of 0. She denies chest, arm, jaw, or neck discomfort. She denies palpitations or bilateral lower extremity edema. She acknowledges shortness breath with activity. She feels her shortness of breath matches activity. She denies shortness of breath at rest, orthopnea, cough, or PND. She acknowledges lightheadedness and dizziness. This is associated with warped vision. She denies near-syncope, syncope, or weakness. She denies fatigue. Intake Vital Signs 05/01/24 09:07 01/25/25 15:34 Height 5 ft 5 ft Weight: 192 lb BMI 37.5 BP 134/82 H Blood Pressure Location Lt brachial Position Sitting Respiration 16 Pulse 80 Pulse Source Monitor Intake Visit Reasons: 18 M FU Precision Inspector Required: No Accompanied by: Self Is patient in pain?: No Allergies Penicillins Allergy (Severe, Verified 01/25/25 15:37) Rash Sulfa (Sulfonamide Antibiotics) Allergy (Severe, Verified 01/25/25 15:37) Unknown gluten Allergy (Verified 01/25/25 15:37) Other Medications ???Medication ???Instructions ???Recorded ???Confirmed ???Type escitalopram oxalate 5 mg tablet 5 mg PO DAILY 05/09/22 01/25/25 Hi story ropinirole 1 mg tablet 1 mg PO DAILY 07/04/23 01/25/25 Hi story hydrochlorothiazide 25 mg tablet See Rx Instructions .Route 4 01/25/25 Rx .COMPLEX #90 tabs lisinopril 30 mg tablet 30 mg PO DAILY #90 TABLETS 4 01/25/25 Rx rabeprazole 20 mg tablet,delayed 20 mg PO QDAY 05/01/24 01/25/25 Hi story release Ejection fraction %: 60 Have you fallen in the past year?: No PFSH Medical History Acute bronchitis, unspecified History of anemia WAN (stress urinary incontinence, female) Wears contact lenses Blood disorder Restless legs Hypertension PONV (postoperative nausea and vomiting) Celiac disease Obesity Paresthesia and pain of right extremity Surgical History History of bladder suspension procedure History of carpal tunnel release History of herniorrhaphy History of tubal ligation Family History Brother , 51 Myocardial infarction, Onset Age: 78 Father CAD (coronary artery disease) CABG x 5, Coronary stents Myocardial infarction Grandmother , Age 62 Myocardial infarction Social History Smoking Status: Never smoker alcohol intake: never ROS Const Const: Negative for fatigue or weakness Eyes Eyes: Positive for other (when dizzy sight looks warped); Negative for change in vision ENT ENT: Positive for dizziness; Negative for balance problems Cardio Chest Pain: No Palpitations: No Edema: None Muscle aches with walking: None Resp Respiratory: Positive for SOB with activity; Negative for SOB at rest or SOB orthopnea SOB lying down GI GI: Positive for nausea; Negative heartburn : Negative for hematuria or frequent nighttime urination/ nocturia Musc Musc: Negative for balance problems Skin Skin: Negative non-healing lesions or rash Neuro Neuro: Positive for dizziness and lightheadedness; Negative for near syncope, syncope or weakness Endo Endo: Negative for fatigue Allergy Allergy/Immunology: Negative for rash Cardiology Exam Const Appearance: cooperative, healthy appearing, comfortable and no acute distress Nutritional Appearance: average body habitus and well nourished Orientation: alert, awake and oriented x3 Head Head: normal to inspection Ears: hearing grossly normal bilaterally Nose: external nose normal Face and Sinus: face symmetric Mouth: moist mucous membranes Eyes General: appearance normal, both eyes and all (more content not included)... Normal [facility] Breast imaging reportOrdered By: Carmen Katz on 12-07-2024 Study report [facility] Imaging Services [address] [place] [address] SCRN MAMM (CAD)W/JOHANNA BILAT MR#: [id number] Acct: [id number] Name: KIMMIE PENA Rep #: [id number] : 1975 F 49 From: Clint Husain MD PCP: Dr. Marisel Rowe DO Status: REG CLI Study:SCRN MAMM (CAD)W/JOHANNA BILAT Date of Exa m: 12/07/24 Exam# [id number] Ordering Dr: Dominique Rowe sa, DO EXAM: SCRN MAMM (CAD)W/JOHANNA BILAT DATE: 12/07/2024 CLINICAL HISTORY: F, Age 49 y/o , SCREENING BREAST CANCER RISK ASSESSMENT: Na TECHNIQUE: SCRN MAMM (CAD)W/JOHANNA BILAT COMPARISON: Prior exam(s) were compared FINDINGS: TISSUE DENSITY: The breast tissue is heterogeneously dense, which may obscure small masses. Bilateral Breast Mammographic Findings: No suspicious masses, calcifications or other abnormalities are identified. BI/SCRN MAMM (CAD)W/JOHANNA BILAT IMPRESSION: No mammographic evidence of malignancy in either breast OVERALL FINAL ASSESSMENT BI-RADS 1: NEGATIVE. RECOMMEND ANNUAL MAMMOGRAPHIC SCREENING. RECOMMENDATION: Routine annual follow-up in 1 Year A letter with findings and recommendations will be mailed to the patient. Reading Location: [id number] CC: Dr. Marisel Rowe DO ~ Photograph Finisher: Signed [facility] SCRN MAMM (CAD)W/JOHANNA BILATo n 12-07-2024 SCRN MAMM (CAD)W/JOHANNA BILAT [facility] Imaging Services [address] [place], [place] [address] SCRN MAMM (CAD)W/JOHANNA BILAT MR#: [id number] Acct: [id number] Name: KIMMIE PENA Rep #: [id number] : 1975 F 49 From: Carmen Hudson i, MD PCP: Dr. Marisel Rowe DO Status: REG CLI Study: SCRN MAMM (CAD)W/JOHANNA BILAT Date of Exam: 11/16 09/08 Exam# [id number] Ordering Dr: Marisel Rowe DO EXAM: SCRN MAMM (CAD)W/JOHANNA BILAT DATE: 12/07/2024 CLINICAL HISTORY: F, Age 49 y/o , SCREENING BREAST CANCER RISK ASSESSMENT: Na TECHNIQUE: SCRN MAMM (CAD)W/JOHANNA BILAT COMPARISON: Prior exam(s) were compared FINDINGS: TISSUE DENSITY: The breast tissue is heterogeneously dense, which may obscure small masses. Bilateral Breast Mammographic Findings: No suspicious masses, calcifications or other abnormalities are identified. BI/SCRN MAMM (CAD)W/JOHANNA BILAT IMPRESSION: No mammographic evidence of malignancy in either breast OVERALL FINAL ASSESSMENT BI-RADS 1: NEGATIVE. RECOMMEND ANNUAL MAMMOGRAPHIC SCREENING. RECOMMENDATION: Routine annual follow-up in 1 Year A letter with findings and recommendations will be mailed to the patient. Reading Location: [id number] CC: Dr. Marisel Rowe DO Photograph Finisher: Signed Normal [facility] Absolute lymphocyte countOrd ered By: Marisel Rowe on 11-11-2024 Lymphocytes Auto (Unsp spec) [#/Vol] 1.79 10*3/uL 0.83-4.51 [facility] Absolute neutrophil countOrd ered By: Marisel Rowe on 11-11-2024 Neutrophils (Bld) [#/Vol] 2.3 10*3/uL 2.0-7.7 [facility] Anion gap in Serum or Plasma Ordered By: Marisel Rowe on 11-11-2024 Anion gap [Moles/Vol] 12 mmol/L 5-15 [facility] Automated lymphocyte count a s percentage of total leukocytesOrdered By: Marisel Rowe on 11-11-2024 Lymphocytes/100 WBC Auto (Unsp spec) 38.5 % 19- [facility] BUN/creatinine ratioOrdered By: Marisel Rowe on 11-11-2024 Urea nitrogen/Creatinine [Mass ratio] 16.5 mg/mg 10-20 [facility] Basophil percentageOrdered B y: Marisel Rowe on 11-11-2024 Basophils/100 WBC (Bld) 0.6 % 0-1 [facility] Bilirubin, totalOrdered By: Marisel Rowe on 11-11-2024 Bilirubin [Mass/Vol] 0.34 mg/dL 0.00-1.30 [facility] CBC W/Diff, Automatedon 10-16 Absolute Lymph 1.79 X10 3/uL Normal 0.83-4.51 [facility] Comment on above: Performed By: #### L 100.0100, L500.4050, L500.4100 #### [facility] [address] [place], [address] Absolute Neut 2.3 X10 3/uL Normal 2.0-7.7 [facility] Comment on above: Performed By: #### L 100.0100, L500.4050, L500.4100 #### [facility] [address] [place], [address] Basophils/100 WBC (Bld) 0.6 % Normal 0-1 [facility] Comment on above: Performed By: #### L 100.0100, L500.4050, L500.4100 #### [facility] [address] [place], [address] Eosinophils/100 WBC (Bld) 1.5 % Normal 0-5 [facility] Comment on above: Performed By: #### L 100.0100, L500.4050, L500.4100 #### [facility] [address] [place], [address] Erythrocyte distribution width (RBC) [Ratio] 12.4 % Normal 11.6-14.6 [facility] Comment on above: Performed By: #### L 100.0100, L500.4050, L500.4100 #### [facility] [address] [place], [address] Hematocrit (Bld) [Volume fraction] 39.0 % Normal 37-47 [facility] Comment on above: Performed By: #### L 100.0100, L500.4050, L500.4100 #### [facility] [address] [place], [address] Hemoglobin (Bld) [Mass/Vol] 13.7 g/dL Normal 12.0-15.0 [facility] Comment on above: Performed By: #### L 100.0100, L500.4050, L500.4100 #### [facility] [address] [place], [address] IG% 0.200 Normal 0.0-0.9 [facility] Comment on above: Result Comment: IG% - Immature Granulocytes (promyelocytes, myelocytes and metamyelocytes) > 1% indicates that a LEFT SHIFT is Present. Performed By: #### L 100.0100, L500.4050, L500.4100 #### [facility] [address] [place], [address] Lymphocytes/100 WBC (Bld) 38.5 % Normal 19-41 [facility] Comment on above: Performed By: #### L 100.0100, L500.4050, L500.4100 #### [facility] [address] [place], [address] MCH (RBC) [Entitic mass] 30.3 pg Normal 27.0-32.0 [facility] Comment on above: Performed By: #### L 100.0100, L500.4050, L500.4100 #### [facility] [address] [place], [address] MCHC (RBC) [Mass/Vol] 35.1 g/dL Normal 32-36 [facility] Comment on above: Performed By: #### L 100.0100, L500.4050, L500.4100 #### [facility] [address] [place], [address] MCV (RBC) [Entitic vol] 86.3 fL Normal 81-99 [facility] Comment on above: Performed By: #### L 100.0100, L500.4050, L500.4100 #### [facility] [address] [place], [address] Monocytes/100 WBC (Bld) 9.9 % Normal 0-10 [facility] Comment on above: Performed By: #### L 100.0100, L500.4050, L500.4100 #### [facility] [address] [place], [address] Neutrophils/100 WBC (Bld) 49.3 % Normal 47-70 [facility] Comment on above: Performed By: #### L 100.0100, L500.4050, L500.4100 #### [facility] [address] [place], [address] Nucleated RBC (Bld) [#/Vol] 0 10*3/uL Normal 0-5 [facility] Comment on above: Performed By: #### L 100.0100, L500.4050, L500.4100 #### [facility] [address] [place], [address] Platelet mean volume (Bld) [Entitic vol] 11.1 fL Normal 6.2-12.0 [facility] Comment on above: Performed By: #### L 100.0100, L500.4050, L500.4100 #### [facility] [address] [place], [address] Platelets (Bld) [#/Vol] 247 10*3/uL Normal 150-450 [facility] Comment on above: Performed By: #### L 100.0100, L500.4050, L500.4100 #### [facility] [address] [place], [address] RBC (Bld) [#/Vol] 4.52 10*6/uL Normal 4.2-5.4 [facility] Comment on above: Performed By: #### L 100.0100, L500.4050, L500.4100 #### [facility] [address] [place], [address] RDW SD 39.4 fl Normal 35.1-43.9 [facility] Comment on above: Performed By: #### L 100.0100, L500.4050, L500.4100 #### [facility] [address] [place], [address] WBC (Bld) [#/Vol] 4.7 10*3/uL Normal 4.4-11.0 [facility] Comment on above: Performed By: #### L 100.0100, L500.4050, L500.4100 #### [facility] [address] [place], [address] Calculated very low density lipoprotein (VLDL) cholesterol measurementOrdered By: Marisel Rowe on 11-11-2024 Calculated very low density lipoprotein (VLDL) cholesterol measurement 18 mg/dL 5-40 [facility] Carbon dioxide, total [Moles /volume] in Central venous bloodOrdered By: Marisel Rowe on 11-11-2024 CO2 [Moles/Vol] 23.7 mmol/L 21.0-32.0 [facility] Chloride assayOrdered By: Dominique Rowe on 11-11-2024 Chloride [Moles/Vol] 101 mmol/L 98-108 [facility] Comprehensive Metabolic Prof ilon 11-11-2024 Albumin [Mass/Vol] 4.5 g/dL Normal 3.5-5.0 [facility] Comment on above: Performed By: #### L 100.0100, L500.4050, L500.4100 #### [facility] [address] [place], [address] Albumin/Globulin [Mass ratio] 1.7 {ratio} Normal 0.9-2.4 [facility] Comment on above: Performed By: #### L 100.0100, L500.4050, L500.4100 #### [facility] [address] [place], [address] ALK PHOS 68 U/L Normal 35-104 [facility] Comment on above: Performed By: #### L 100.0100, L500.4050, L500.4100 #### [facility] [address] [place], [address] ALT [Catalytic activity/Vol] 20 U/L Normal <=34 [facility] Comment on above: Performed By: #### L 100.0100, L500.4050, L500.4100 #### [facility] [address] [place], [address] AST [Catalytic activity/Vol] 23 U/L Normal <=31 [facility] Comment on above: Performed By: #### L 100.0100, L500.4050, L500.4100 #### [facility] [address] [place], [address] Bilirubin [Mass/Vol] 0.34 mg/dL Normal 0.00-1.30 [facility] Comment on above: Performed By: #### L 100.0100, L500.4050, L500.4100 #### [facility] [address] [place], [address] BUN/CRE 16.5 RATIO Normal 10-20 [facility] Comment on above: Performed By: #### L 100.0100, L500.4050, L500.4100 #### [facility] [address] [place], [address] Calcium [Mass/Vol] 9.7 mg/dL Normal 7.6-11.0 [facility] Comment on above: Performed By: #### L 100.0100, L500.4050, L500.4100 #### [facility] [address] [place], [address] Chloride [Moles/Vol] 101 mmol/L Normal 98-108 [facility] Comment on above: Performed By: #### L 100.0100, L500.4050, L500.4100 #### [facility] [address] [place], [address] CO2 [Moles/Vol] 23.7 mmol/L Normal 21.0-32.0 [facility] Comment on above: Performed By: #### L 100.0100, L500.4050, L500.4100 #### [facility] [address] [place], [address] Creatinine [Mass/Vol] 0.88 mg/dL Normal 0.70-1.20 [facility] Comment on above: Performed By: #### L 100.0100, L500.4050, L500.4100 #### [facility] [address] [place], [address] GAP 12 Normal 5-15 [facility] Comment on above: Performed By: #### L 100.0100, L500.4050, L500.4100 #### [facility] [address] [place], [address] GFR/1.73 sq M.predicted among non-blacks MDRD (S/P/Bld) [Vol rate/Area] 82 mL/min/{1.73_m2} Normal >60 [facility] Comment on above: Result Comment: mL/m in/1.73m2 CKD-EPI Creatinine Equation (2020) Performed By: #### L 100.0100, L500.4050, L500.4100 #### [facility] [address] [place], [address] Globulin (S) [Mass/Vol] 2.7 g/dL Normal 2.2-4.2 [facility] Comment on above: Performed By: #### L 100.0100, L500.4050, L500.4100 #### [facility] [address] [place], [address] Glucose [Mass/Vol] 107 mg/dL High 70-99 [facility] Comment on above: Performed By: #### L 100.0100, L500.4050, L500.4100 #### [facility] [address] [place], [address] Potassium [Moles/Vol] 3.6 mmol/L Normal 3.3-5.1 [facility] Comment on above: Performed By: #### L 100.0100, L500.4050, L500.4100 #### [facility] [address] [place], [address] Sodium [Moles/Vol] 137 mmol/L Normal 133-145 [facility] Comment on above: Performed By: #### L 100.0100, L500.4050, L500.4100 #### [facility] [address] [place], [address] T PROT 7.2 g/dL Normal 5.9-8.4 [facility] Comment on above: Performed By: #### L 100.0100, L500.4050, L500.4100 #### [facility] [address] [place], [address] Urea nitrogen [Mass/Vol] 15 mg/dL Normal 4-19 [facility] Comment on above: Performed By: #### L 100.0100, L500.4050, L500.4100 #### [facility] [address] [place], [address] Eosinophil percentageOrdered By: Marisel Rowe on 11-11-2024 Eosinophils/100 WBC (Bld) 1.5 % 0-5 [facility] Erythrocyte distribution wid th ratioOrdered By: Marisel Rowe on 11-11-2024 Erythrocyte distribution width (RBC) [Ratio] 12.4 % 11.6-14.6 [facility] Erythrocyte distribution wid th standard deviationOrdered By: Marisel Rowe on 11-11-2024 Erythrocyte distribution width (RBC) [Ratio] 39.4 fl 35.1-43.9 [facility] Glomerular filtration rate ( GFR) estimation/1.73 sq m using serum, plasma, or whole bOrdered By: Marisel Rowe on 11-11-2024 GFR/1.73 sq M.predicted among non-blacks MDRD (S/P/Bld) [Vol rate/Area] 82 mL/min/{1.73_m2} >60 [facility] Comment on above: mL/min/1.73m2 CKD-EP I Creatinine Equation (2020) Hematocrit Auto (Bld) [Volum e fraction]Ordered By: Marisel Rowe on 11-11-2024 Hematocrit (Bld) [Volume fraction] 39.0 % 37-47 [facility] Hemoglobin measurementOrdere d By: Marisel Rowe on 11-11-2024 Hemoglobin (Bld) [Mass/Vol] 13.7 g/dL 12.0-15.0 [facility] Immature granulocytes/100 WB C Auto (Bld)Ordered By: Marisel Rowe on 11-11-2024 Immature granulocytes/100 WBC (Bld) 0.200 % 0.0-0.9 [facility] Comment on above: IG% - Immature Granu locytes (promyelocytes, myelocytes and metamyelocytes) > 1% indicates that a LEFT SHIFT is Present. LDL calc ser/plasOrdered By: Marisel Rowe on 11-11-2024 Cholesterol in LDL [Mass/Vol] 114 mg/dL [facility] Comment on above: Jywwcsqatv=565-024 m g/dL & Higher Eves=557 mg/dL or greater Laboratory - Chemistry and C hemistry - challengeOrdered By: Marisel Rowe on 11-11-2024 AST [Catalytic activity/Vol] 23 U/L <32 [facility] Lipid Profileon 11-11-2024 CHOL:HDL 3.[address] [facility] Comment on above: Performed By: #### L 100.0100, L500.4050, L500.4100 #### [facility] [address] [place], [address] Cholesterol [Mass/Vol] 186 mg/dL Normal <=200 [facility] Comment on above: Result Comment: Chol esterol level, Desirable <200 mg/dL Borderline high cholesterol 200-239 mg/dL High cholesterol >=240 mg/dL Recommendations of the NCEP Adult Treatment Panel for the following risk-cutoff thresholds for the [place] population. Performed By: #### L 100.0100, L500.4050, L500.4100 #### [facility] [address] [place], [address] Cholesterol in HDL [Mass/Vol] 54 mg/dL Normal [facility] Comment on above: Result Comment: [place] on[place] Cholesterol Education Program (NCEP) guidelines: <40 mg/dL: Low HDL-cholesterol (major risk factor for CHD) >= 60 mg/dL: High HDL-cholesterol (negative risk factor for CHD) HDL-cholesterol is affected by a number of factors, e.g. smoking, exercise, hormones, sex and age. Performed By: #### L 100.0100, L500.4050, L500.4100 #### [facility] [address] [place], [address] Cholesterol in LDL [Mass/Vol] 114 mg/dL Normal [facility] Comment on above: Result Comment: Bord xdtrjf=810-471 mg/dL Higher Wgpx=907 mg/dL or greater Performed By: #### L 100.0100, L500.4050, L500.4100 #### [facility] [address] [place], [address] Cholesterol in VLDL [Mass/Vol] 18 mg/dL Normal 5-40 [facility] Comment on above: Performed By: #### L 100.0100, L500.4050, L500.4100 #### [facility] [address] [place], [address] Triglyceride [Mass/Vol] 92 mg/dL Normal [facility] Comment on above: Result Comment: The drugs N-Acetylcysteine and Metamizole may falsely depress this assay. Normal range: <150 mg/dL Borderline High: 150-199 mg/dL High: 200-499 mg/dL Very High: >500 mg/dL Performed By: #### L 100.0100, L500.4050, L500.4100 #### [facility] [address] [place], [address] MCV (mean corpuscular volume ) determinationOrdered By: Marisel Rowe on 11-11-2024 MCV (RBC) [Entitic vol] 86.3 fL 81-99 [facility] Mean corpuscular hemoglobin (MCH) determinationOrdered By: Marisel Rowe on 11-11-2024 MCH (RBC) [Entitic mass] 30.3 pg 27.0-32.0 [facility] Mean corpuscular hemoglobin concentration (MCHC) determinationOrdered By: Marisel Rowe on 11-11-2024 MCHC (RBC) [Mass/Vol] 35.1 g/dL 32-36 [facility] Mean platelet volume determi nationOrdered By: Marisel Rowe on 11-11-2024 Platelet mean volume (Bld) [Entitic vol] 11.1 fL 6.2-12.0 [facility] Monocyte percentageOrdered B y: Marisel Rowe on 11-11-2024 Monocytes/100 WBC (Bld) 9.9 % 0-10 [facility] Neutrophil percentageOrdered By: Marisel Rowe on 11-11-2024 Neutrophils/100 WBC (Bld) 49.3 % 47-70 [facility] Nucleated red blood cell per centageOrdered By: Marisel Rowe on 11-11-2024 Nucleated RBC/100 WBC (Bld) [Ratio] 0 % 0-5 [facility] Platelet countOrdered By: Dominique Rowe on 11-11-2024 Platelets (Bld) [#/Vol] 247 10*3/uL 150-450 [facility] Potassium measurement (mass/ volume)Ordered By: Marisel Rowe on 11-11-2024 Potassium (Unsp spec) [Mass/Vol] 3.6 mmol/L 3.3-5.1 [facility] RBC Auto (Bld) [#/Vol]Ordere d By: Marisel Rowe on 11-11-2024 RBC (Bld) [#/Vol] 4.52 10*6/uL 4.2-5.4 [facility] Screening total cholesterol/ high density lipoprotein (HDL) cholesterol ratioOrdered By: Marisel Rowe on 11-11-2024 Cholesterol.total/Cholest kesha in HDL [Mass ratio] 3.46 {ratio} [facility] Serum creatinine measurement (mass/volume)Ordered By: Marisel Rowe on 11-11-2024 Creatinine [Mass/Vol] 0.88 mg/dL 0.70-1.20 [facility] Serum globulin measurementOr dered By: Marisel Rowe on 11-11-2024 Globulin (S) [Mass/Vol] 2.7 g/dL 2.2-4.2 [facility] Serum glucose measurement (m ass/volume)Ordered By: Marisel Rowe on 11-11-2024 Glucose [Mass/Vol] 107 mg/dL High 70-99 [facility] Serum or plasma alanine jefferson otransferase (ALT) measurementOrdered By: Marisel Rowe on 11-11-2024 ALT [Catalytic activity/Vol] 20 U/L <35 [facility] Serum or plasma albumin bharath urement (mass/volume)Ordered By: Marisel Rowe on 11-11-2024 Albumin [Mass/Vol] 4.5 g/dL 3.5-5.0 [facility] Serum or plasma albumin/glob ulin mass ratioOrdered By: Marisel Rowe on 11-11-2024 Albumin/Globulin [Mass ratio] 1.7 {ratio} 0.9-2.4 [facility] Serum or plasma alkaline gini sphatase measurementOrdered By: Marisel Rowe on 11-11-2024 ALP [Catalytic activity/Vol] 68 U/L 35-104 [facility] Serum or plasma calcium bharath urement (mass/volume)Ordered By: Marisel Rowe on 11-11-2024 Calcium [Mass/Vol] 9.7 mg/dL 7.6-11.0 [facility] Serum or plasma cholesterol in HDL measurement (mass/volume)Ordered By: Marisel Rowe on 11-11-2024 Cholesterol in HDL [Mass/Vol] 54 mg/dL >40 [facility] Comment on above: National Cholesterol Education Program (NCEP) guidelines:<40 mg/dL: Low HDL-cholesterol (major risk factor for CHD)>= 60 mg/dL: High HDL-cholesterol (negative risk factor for CHD)HDL-cholesterol is affected by a number of factors, e.g. smoking, exercise, hormones, sex and age. Serum or plasma cholesterol measurement (mass/volume)Ordered By: Marisel Rowe on 11-11-2024 Cholesterol [Mass/Vol] 186 mg/dL <201 [facility] Comment on above: Cholesterol level, D esirable <200 mg/dLBorderline high cholesterol 200-239 mg/dLHigh cholesterol >=240 mg/dLRecommendations of the NCEP Adult Treatment Panel for the following risk-cutoff thresholds for the [place] population. Serum or plasma urea nitroge n measurement (mass/volume)Ordered By: Marisel Rowe on 11-11-2024 Urea nitrogen [Mass/Vol] 15 mg/dL 4-19 [facility] Sodium levelOrdered By: Marisel Rowe on 11-11-2024 Sodium [Moles/Vol] 137 mmol/L 133-145 [facility] Total proteinOrdered By: Lady Rowe on 11-11-2024 Protein [Mass/Vol] 7.2 g/dL 5.9-8.4 [facility] Triglycerides measurementOrd ered By: Marisel Rowe on 11-11-2024 Triglyceride [Mass/Vol] 92 mg/dL <199 [facility] Comment on above: The drugs N-Acetylcy steine and Metamizole may falsely depress this assay. Normal range: <150 mg/dLBorderline High: 150-199 mg/dLHigh: 200-499 mg/dLVery High: >500 mg/dL White blood cell (WBC) count Ordered By: Marisel Rowe on 11-11-2024 WBC (Bld) [#/Vol] 4.7 10*3/uL 4.4-11.0 [facility] Dexa Bone Density Studyon Dexa Bone Density Study [facility] Imaging Services [address] [place] [address] [id number] Dexa Bone Density Study MR#: [id number] Acct: [id number] Name: KIMMIE PENA Rep #: [id number] : 1975 F 48 From: Tamela Morales PCP: Dr. Marisel Rowe, DO Status: REG CLI Study: Dexa Bone Density Study Date of Exam: 08/06/24 Exam# [id number] Ordering Dr: Gumaro Hooker MD EXAM: CLINICAL INDICATION: Determine bone density. CLINICAL HISTORY: Screening for osteopenia/ osteoporosis COMPARISON: None TECHNIQUE: Bone densitometry of the lumbar spine and hips was performed using the HOLOGIC DEXA scanner. FINDINGS: Bone Density Measurements: SPINE AP Spine (L1-L4): 1.250 g/cm2 T-Score: 1.8 Z-Score: 2.4 WHO Classification: NORMAL LEFT FEMUR Femoral TOTAL (LEFT): 1.144 g/cm2 T-Score: 1.7 Z-Score: 2.0 WHO Classification: NORMAL Femoral NECK (LEFT): 0.919 g/cm2 T-Score: 0.6 Z-Score: 1.2 WHO Classification: NORMAL RIGHT FEMUR Femoral TOTAL (RIGHT): 1.113 g/cm2 T-Score: 1.4 Z-Score: 1.7 WHO Classification: NORMAL Femoral NECK (RIGHT): 0.901 g/cm2 T-Score: 0.5 Z-Score: 1.0 WHO Classification: NORMAL BD/Dexa Bone Density Study IMPRESSION: The patient demonstrates normal bone mineral density of the lumbar spine and both hips. She is at low risk for fracture. The 10 year fracture risk index for a major osteoporotic fracture is 2.4% and for a hip fracture is less than 0.1%. World Health Organization criteria for BMD interpretation classify patients as: Normal (T-score at or above -1.0), Osteopenic (T-score between -1.0 and -2.5),or Osteoporotic (T-score at or below -2.5). The presence of vertebral abnormalities such as scoliosis or osteophytes, or aortic/ligamentous calcifications can alter readings of the lumbar spine. In such cases, readings of the hips are more reliable. Reading Location: [id number] CC: Dr. Marisel Rowe DO; Dr. Gumaro Hooker MD Photograph Finisher: Signed Normal [facility] Visit Reporton 0 06-23-2024 Urgent Care Visit Report [facility] [address], [address] [place] [address] OFFICE VISIT Date of Service: 06/23/24 MR#: [id number] Acct: [id number] Name: KIMMIE PENA Rep #: [id number] : 1975 Provider: PATTIE Smith Age/Sex: 48/F Location: [facility] Status: Signed Intake Vital Signs 05/01/24 09:07 06/23/24 06:38 Height 5 ft BP 104/80 118/70 Blood Pressure Location Lt brachial Lt brachial Position Sitting Sitting Respiration 16 12 Pulse 86 104 H Pulse Source Monitor NIBP Temp 98.8 F 97.4 F L Temp Source Temporal Oral Pulse Oximetry (%) 96 96 Oxygen Delivery Method room air room air Intake Visit Reasons: ST/COUGH/SINUS COMP Chief Complaint: st/cough/sinus congestion Precision Inspector Required: No Is patient in pain?: No Allergies Penicillins Allergy (Severe, Verified 06/23/24 06:38) Rash Sulfa (Sulfonamide Antibiotics) Allergy (Severe, Verified 06/23/24 06:38) Unknown gluten Allergy (Verified 06/23/24 06:38) Other Medications ???Medication ???Instructions ???Recorded ???Confirmed ???Type escitalopram oxalate 5 mg tablet 5 mg PO DAILY 05/09/22 06/23/24 History ropinirole 1 mg tablet 1 mg PO DAILY 07/04/23 06/23/24 History hydrochlorothiazide 25 mg tablet See Rx Instructions .Route 07/29/23 06/23/24 Rx .COMPLEX #90 tabs lisinopril 30 mg tablet 30 mg PO DAILY #90 TABLETS 03/02/24 06/23/24 Rx rabeprazole 20 mg tablet,delayed 20 mg PO QDAY 05/01/24 06/23/24 History release benzonatate 200 mg capsule 200 mg PO TID PRN cough #20 caps 06/23/24 06/23/24 Rx doxycycline monohydrate 100 mg 100 mg PO BID #28 caps 06/23/24 06/23/24 Rx capsule prednisone 10 mg tablet 10 mg PO DAILY #18 tabs 06/23/24 06/23/24 Rx Is last menstrual period known: No Post menopausal: No Patient : No Have you fallen in the past year?: No Nurse's Note: Patient is here for sore throat, cough, sinus congestion x3 weeks. [facility] Medical History Acute bronchitis, unspecified History of anemia WAN (stress urinary incontinence, female) Wears contact lenses Blood disorder Restless legs Hypertension PONV (postoperative nausea and vomiting) Celiac disease Obesity Paresthesia and pain of right extremity Surgical History History of bladder suspension procedure History of carpal tunnel release History of herniorrhaphy History of tubal ligation Family History Brother , 51 Myocardial infarction, Onset Age: 78 Father CAD (coronary artery disease) CABG x 5, Coronary stents Myocardial infarction Grandmother , Age 62 Myocardial infarction Social History Smoking Status: Never smoker alcohol intake: never HPI HPI Chief Complaint: st/cough/sinus congestion Details: KIMMIE PENA, is a 48 F who presents to the office today for [facility] at [facility] for approximately 3-week history of progressively worsening forehead pressure/congestion with purulent postnasal drip, sore throat, cough. No complaints of fever, chills, myalgias, fatigue, runny nose, or nausea/vomiting/pedrito rrhea. No complaints of chest pain/shortness of breath/dyspnea on exertion. No close contacts with similar complaints. Nonsmoker. No other associated symptoms and no other alleviating/aggrava ting factors. ROS Const Constitutional: No other (as above) Exam Const General: cooperative, healthy appearing and no acute distress Nutritional Appearance: average body habitus Orientation: alert, awake and oriented x3 HENMT Head: normal to inspection Ears: hearing grossly normal bilaterally, external ears normal, TM's normal bilaterally and EAC's normal Nose: external nose normal, nares normal, septum normal and no nasal discharge Face and sinus: normal facial exam, sinuses tender (left frontal) and face symmetric Mouth: oral mucosae normal, lip normal, tongue normal and oropharynx normal Throat: posterior oropharynx normal, tonsils normal, uvula midline and postnasal drainage (Purulent) Eyes General: appearance normal, both eyes and all related structures Neck Neck: normal visual inspection, full ROM, no meningeal signs, supple and lymphadenopathy (Bilateral anterior cervical lymph node swelling/tender to palpation) Neck mass: No Thyroid: thyroid normal Chest Chest palpation inspection: normal inspection of the chest Resp Effort Inspection: normal respiratory effort and able to speak in complete sentences, with moist nonproductive cough Auscultation: Bilateral: Clear to Auscultation Cardio Palpation: normal PMI Rate: Tachycardic Rhythm: regular rhythm Heart Sounds: (more content not included)... Normal [facility] Visit Reporton 07-01-2023 Urgent Care Visit Report [facility] [address], [address] [place] [address] OFFICE VISIT Date of Service: 05/01/24 MR#: [id number] Acct: [id number] Name: KIMMIE PENA Rep #: [id number] : 1975 Provider: PATTIE Gregory Age/Sex: 48/F Location: [facility] Status: Signed Intake Vital Signs 07/04/23 14:55 05/01/24 09:07 Height 5 ft 5 ft Weight: 183 lb BMI 35.7 BP 120/72 104/80 Blood Pressure Location Lt brachial Lt brachial Position Sitting Sitting Respiration 16 16 Pulse 71 86 Pulse Source Monitor Monitor Temp 98.8 F Temp Source Temporal Pulse Oximetry (%) 96 Oxygen Delivery Method room air Intake Visit Reasons: CONCERN FOR SINUS INFECTION Chief Complaint: Sinus and chest congestion, headache, b/l ear pain Accompanied by: Self Is patient in pain?: Yes Pain scale (1-10): 6 Allergies Penicillins Allergy (Severe, Verified 05/01/24 09:06) Rash Sulfa (Sulfonamide Antibiotics) Allergy (Severe, Verified 05/01/24 09:06) Unknown gluten Allergy (Verified 05/01/24 09:06) Other Medications ???Medication ???Instructions ???Recorded ???Confirmed ???Type escitalopram oxalate 5 mg tablet 5 mg PO DAILY 05/09/22 05/01/24 History ropinirole 1 mg tablet 1 mg PO DAILY 07/04/23 05/01/24 History hydrochlorothiazide 25 mg tablet See Rx Instructions .Route 07/29/23 05/01/24 Rx .COMPLEX #90 tabs lisinopril 30 mg tablet 30 mg PO DAILY #90 TABLETS 03/02/24 05/01/24 Rx doxycycline monohydrate 100 mg 100 mg PO BID 10 days #20 caps 05/01/24 05/01/24 Rx capsule methylprednisolone 4 mg tablets in 4 mg PO PER PKG DIR 6 days #21 tabs 05/01/24 05/01/24 Rx a dose pack (Medrol (Sebas)) rabeprazole 20 mg tablet,delayed 20 mg PO QDAY 05/01/24 05/01/24 History release [facility] Medical History Acute bronchitis, unspecified Blood disorder Celiac disease History of anemia Hypertension Obesity Paresthesia and pain of right extremity PONV (postoperative nausea and vomiting) Restless legs WAN (stress urinary incontinence, female) Wears contact lenses Surgical History History of bladder suspension procedure History of carpal tunnel release History of herniorrhaphy History of tubal ligation Family History Brother , 51 Myocardial infarction, Onset Age: 78 Father CAD (coronary artery disease) CABG x 5, Coronary stents Myocardial infarction Grandmother , Age 62 Myocardial infarction Social History Smoking Status: Never smoker alcohol intake: never HPI HPI Chief Complaint: Sinus and chest congestion, headache, b/l ear pain Details: KIMMIE PENA, is a 48 F who presents to the office today for complaint of sinus and chest congestion as well as headache and bilateral ear pressure for the past week. Patient denies fever, chills, sweats. No nausea, vomiting or diarrhea. No hemoptysis, shortness of breath or difficulty breathing. No loss of taste or smell. No other associated symptoms or alleviating/aggrava ting factors. ROS Const Constitutional: No other (as above) Exam Const General: cooperative and healthy appearing HENIL Head: normal to inspection Ears: hearing grossly normal bilaterally, TM's normal bilaterally and EAC's normal Nose: nasal discharge purulent Face and sinus: sinus tenderness frontal and maxillary Mouth: oral mucosae normal Throat: abnormal tonsil bilaterally erythema and hypertrophy 1+ and postnasal drainage Resp Effort Inspection: normal respiratory effort Auscultation: Bilateral: Clear to Auscultation Cardio Palpation: normal PMI Rate: regular rate Rhythm: regular rhythm Neuro General: patient alert and CN's II-XI intact bilaterally Psych Appearance: grossly normal Mental Status: mental status grossly normal Coding Level of Care Code Off vis,est,level 3 Diagnoses Acute sinusitis J01.90 Assessment and Plan Assessment and Plan (1) Acute sinusitis: Status: Acute Plan: Doxycycline as prescribed today. Encouraged to get plenty of rest, drink lots of clear liquids, and use Tylenol or Ibuprofen (unless contraindicated) for fever and comfort. Patient also educated on other symptomatic management techniques. To be seen in 7-10 days if no improvement; sooner if worsening of symptoms. Patient advised of potential red flags and when appropriate to report to the ED. Patient verbalized understanding and agreement with all of the above. Medications: New doxycycline monohydrate 100 mg PO BID 10 days 20 caps 0RF methylprednisolone (Medrol (Sebas)) 4 mg PO PER PKG DIR 6 days 21 tabs 0RF 11/15/24 09 (more content not included)... Normal [facility] Absolute lymphocyte countOrd ered By: Dr. Rowe on 10-12-2022 Lymphocytes Auto (Unsp spec) [#/Vol] 2.46 10*3/uL 0.83-4.51 [facility] Basophil percentageOrdered B y: Dr. Rowe on 10-12-2022 Basophils/100 WBC (Bld) 0.5 % 0-1 [facility] Bilirubin [Mass/Vol] 0.50 mg/dL 0.20-1.00 [facility] Comment on above: For patients on eltr ombopag therapy, use of Dimension [place] TBIL is not recommended. Chloride [Moles/Vol] 105 mmol/L 98-107 [facility] Cholesterol [Mass/Vol] 191 mg/dL <200 [facility] Comment on above: <200 mg/dL Desirable 200-240 mg/dL Borderline >240 mg/dL High Risk Eosinophils/100 WBC (Bld) 2.0 % 0-5 [facility] Glucose [Mass/Vol] 106 mg/dL 74-106 [facility] Comment on above: Fasting Glucose resu lt from 100 to 125 mg/dL suggests IMPAIRED HOMEOSTASIS per A.D.A. criteria. Neutrophils (Bld) [#/Vol] 2.4 10*3/uL 2.0-7.7 [facility] Neutrophils/100 WBC (Bld) 42.8 % 47-70 [facility] Potassium [Moles/Vol] 3.6 mmol/L 3.5-5.1 [facility] Protein [Mass/Vol] 7.0 g/dL 6.4-8.2 [facility] Sodium [Moles/Vol] 137 mmol/L 136-145 [facility] Triglyceride [Mass/Vol] 106 mg/dL <199 [facility] Comment on above: The drugs N-Acetylcy steine and Metamizole may falsely depress this assay.Serum Triglycerides Reference Interval Normal <150 mg/dL Borderline high 150 - 199 mg/dL High 200 - 499 mg/dL Very High > or = 500 mg/dL WBC (Bld) [#/Vol] 5.5 10*3/uL 4.4-11.0 [facility] Blood erythrocytes count (nu mber/volume)Ordered By: Dr. Rowe on 10-12-2022 RBC (Bld) [#/Vol] 4.59 10*6/uL 4.2-5.4 [facility] Blood hemoglobin measurement (mass/volume)Ordered By: Dr. Rowe on 10-12-2022 Hemoglobin (Bld) [Mass/Vol] 13.7 g/dL 12.0-15.0 [facility] Blood lymphocytes/100 leukoc ytesOrdered By: Dr. Rowe on 10-12-2022 Lymphocytes/100 WBC (Bld) 44.8 % 19-41 [facility] Blood monocytes/100 leukocyt esOrdered By: Dr. Rowe on 10-12-2022 Monocytes/100 WBC (Bld) 9.5 % 0-10 [facility] Blood platelet mean volumeOr dered By: Dr. Rowe on 10-12-2022 Platelet mean volume (Bld) [Entitic vol] 10.0 fL 6.2-12.0 [facility] Determination of erythrocyte mean corpuscular volume (MCV)Ordered By: Dr. Rowe on 10-12-2022 MCV (RBC) [Entitic vol] 88.2 fL 81-99 [facility] Hematocrit Auto (Bld) [Volum e fraction]Ordered By: Dr. Rowe on 10-12-2022 Hematocrit (Bld) [Volume fraction] 40.5 % 37-47 [facility] Laboratory - Chemistry and C hemistry - challengeOrdered By: Dr. Rowe on 10-12-2022 ALP [Catalytic activity/Vol] 63 U/L 45-117 [facility] ALT [Catalytic activity/Vol] 39 U/L 13-56 [facility] CO2 [Moles/Vol] 29.0 mmol/L 21.0-32.0 [facility] Free T4 [Mass/Vol] 0.77 ng/dL 0.76-1.46 [facility] Globulin (S) [Mass/Vol] 3.2 g/dL 2.2-4.2 [facility] Urea nitrogen/Creatinine [Mass ratio] 18.2 mg/mg 10-20 [facility] Laboratory - Hematology and Cell countsOrdered By: Dr. Rowe on 10-12-2022 Erythrocyte distribution width (RBC) [Entitic vol] 41.3 fL 35.1-43.9 [facility] Erythrocyte distribution width (RBC) [Ratio] 12.8 % 11.6-14.6 [facility] Immature granulocytes/100 WBC (Bld) 0.400 % 0.0-0.9 [facility] Comment on above: IG% - Immature Granu locytes (promyelocytes, myelocytes and metamyelocytes) > 1% indicates that a LEFT SHIFT is Present. MCH (RBC) [Entitic mass] 29.8 pg 27.0-32.0 [facility] Nucleated RBC/100 WBC (Bld) [Ratio] 0 % 0-5 [facility] MCHC Auto (RBC) [Mass/Vol]Or dered By: Dr. Rowe on 10-12-2022 MCHC (RBC) [Mass/Vol] 33.8 g/dL 32-36 [facility] No Panel InformationOrdered By: Dr. Rowe on 10-12-2022 Estimated GFR (MDRD) Amer 97 mL/min >60 [facility] Comment on above: GFR Calc Estimated GFR (MDRD) Non-Af Amer 80 mL/min >60 [facility] Comment on above: Non- GFR Calc Free Triiodothyronine (T3) pg/dL 2.8 pg/mL 2.18-3.98 [facility] Thyroid Stimulating Hormone (TSH) 2.59 uIU/mL 0.358-3.74 [facility] Platelets bldOrdered By: Dr. Rowe on 10-12-2022 Platelets (Bld) [#/Vol] 235 10*3/uL 150-450 [facility] Serum or plasma albumin bharath urement (mass/volume)Ordered By: Dr. Rowe on 10-12-2022 Albumin [Mass/Vol] 3.8 g/dL 3.2-5.0 [facility] Serum or plasma albumin/glob ulin mass ratioOrdered By: Dr. Rowe on 10-12-2022 Albumin/Globulin [Mass ratio] 1.2 {ratio} 0.9-2.4 [facility] Serum or plasma calcium bharath urement (mass/volume)Ordered By: Dr. Rowe on 10-12-2022 Calcium [Mass/Vol] 8.9 mg/dL 8.5-10.1 [facility] Serum or plasma cholesterol in HDL measurement (mass/volume)Ordered By: Dr. Rowe on 10-12-2022 Cholesterol in HDL [Mass/Vol] 53 mg/dL >40 [facility] Comment on above: The drugs N-Acetylcy steine and Metamizole may falsely depress this assay. Reference Range HDL <40 mg/dL Low HDL Cholesterol HDL >or= 60 mg/dL High HDL Cholesterol Serum or plasma cholesterol in VLDL measurement (mass/volume)Ordered By: Dr. Rowe on 10-12-2022 Cholesterol in VLDL [Mass/Vol] 21 mg/dL 5-40 [facility] Serum or plasma creatinine m easurement (mass/volume)Ordered By: Dr. Rowe on 10-12-2022 Creatinine [Mass/Vol] 0.82 mg/dL 0.55-1.02 [facility] Comment on above: The validity of the calculated GFR & GFRAA in patients over 70 years has not been determined. Clinical correlation is essential. Serum or plasma low density lipoprotein (LDL) cholesterol measurement (mass/volume)Ordered By: Dr. Rowe on 10-12-2022 Cholesterol in LDL [Mass/Vol] 117 mg/dL 0-130 [facility] Serum or plasma urea nitroge n measurement (mass/volume)Ordered By: Dr. Rowe on 10-12-2022 Urea nitrogen [Mass/Vol] 15 mg/dL 7-18 [facility] Thin prep Papanicolaou smear with manual screeningOrdered By: Dr. Rowe on 10-12-2022 Thin prep Papanicolaou smear with manual screening 26 U/L 15-37 [facility] Thin prep Papanicolaou smear with manual screening 3 5-15 [facility] Absolute lymphocyte counton 11-06-2021 Lymphocytes Auto (Unsp spec) [#/Vol] 2.07 10*3/uL 0.83-4.51 [facility] Work Phone: Basophil percentageon 2021 Basophils/100 WBC (Bld) 0.6 % 0-1 [facility] Work Phone: Bilirubin [Mass/Vol] 0.50 mg/dL 0.20-1.00 [facility] Work Phone: Comment on above: For patients on eltr ombopag therapy, use of Dimension [place] TBIL is not recommended. Chloride [Moles/Vol] 104 mmol/L 98-107 [facility] Work Phone: Cholesterol [Mass/Vol] 161 mg/dL <200 [facility] Work Phone: [phone] Comment on above: <200 mg/dL Desirable 200-240 mg/dL Borderline >240 mg/dL High Risk Eosinophils/100 WBC (Bld) 2.3 % 0-5 [facility] Work Phone: Glucose [Mass/Vol] 98 mg/dL 74-106 [facility] Work Phone: Neutrophils (Bld) [#/Vol] 2.1 10*3/uL 2.0-7.7 [facility] Work Phone: Neutrophils/100 WBC (Bld) 44.0 % 47-70 [facility] Work Phone: Potassium [Moles/Vol] 3.6 mmol/L 3.5-5.1 [facility] Work Phone: Protein [Mass/Vol] 7.1 g/dL 6.4-8.2 [facility] Work Phone: Sodium [Moles/Vol] 139 mmol/L 136-145 [facility] Work Phone: Triglyceride [Mass/Vol] 141 mg/dL <199 [facility] Work Phone: Comment on above: The drugs N-Acetylcy steine and Metamizole may falsely depress this assay.Serum Triglycerides Reference Interval Normal <150 mg/dL Borderline high 150 - 199 mg/dL High 200 - 499 mg/dL Very High > or = 500 mg/dL WBC (Bld) [#/Vol] 4.8 10*3/uL 4.4-11.0 [facility] Work Phone: Blood erythrocytes count (nu mber/volume)on 11-06-2021 RBC (Bld) [#/Vol] 4.30 10*6/uL 4.2-5.4 [facility] Work Phone: Blood hemoglobin measurement (mass/volume)on 11-06-2021 Hemoglobin (Bld) [Mass/Vol] 13.1 g/dL 12.0-15.0 [facility] Work Phone: Blood lymphocytes/100 leukoc yteson 11-06-2021 Lymphocytes/100 WBC (Bld) 42.9 % 19-41 [facility] Work Phone: Blood monocytes/100 leukocyt eson 11-06-2021 Monocytes/100 WBC (Bld) 10.0 % 0-10 [facility] Work Phone: Blood platelet mean volumeon 11-06-2021 Platelet mean volume (Bld) [Entitic vol] 10.7 fL 6.2-12.0 [facility] Work Phone: Determination of erythrocyte mean corpuscular volume (MCV)on 11-06-2021 MCV (RBC) [Entitic vol] 87.2 fL 81-99 [facility] Work Phone: Hematocrit Auto (Bld) [Volum e fraction]on 11-06-2021 Hematocrit (Bld) [Volume fraction] 37.5 % 37-47 [facility] Work Phone: Laboratory - Chemistry and C hemistry - challengeon 11-06-2021 ALP [Catalytic activity/Vol] 64 U/L 45-117 [facility] Work Phone: ALT [Catalytic activity/Vol] 24 U/L 13-56 [facility] Work Phone: CO2 [Moles/Vol] 29.0 mmol/L 21.0-32.0 [facility] Work Phone: Globulin (S) [Mass/Vol] 3.3 g/dL 2.2-4.2 [facility] Work Phone: Urea nitrogen/Creatinine [Mass ratio] 13.2 mg/mg 10-20 [facility] Work Phone: Laboratory - Hematology and Cell countson 11-06-2021 Erythrocyte distribution width (RBC) [Entitic vol] 40.5 fL 35.1-43.9 [facility] Work Phone: Erythrocyte distribution width (RBC) [Ratio] 12.7 % 11.6-14.6 [facility] Work Phone: Immature granulocytes/100 WBC (Bld) 0.200 % 0.0-0.9 [facility] Work Phone: Comment on above: IG% - Immature Granu locytes (promyelocytes, myelocytes and metamyelocytes) > 1% indicates that a LEFT SHIFT is Present. MCH (RBC) [Entitic mass] 30.5 pg 27.0-32.0 [facility] Work Phone: Nucleated RBC/100 WBC (Bld) [Ratio] 0 % 0-5 [facility] Work Phone: MCHC Auto (RBC) [Mass/Vol]on 11-06-2021 MCHC (RBC) [Mass/Vol] 34.9 g/dL 32-36 [facility] Work Phone: No Panel Informationon 11-06 Estimated GFR (MDRD) Amer 86 mL/min >60 [facility] Work Phone: Comment on above: GFR Calc Estimated GFR (MDRD) Non-Af Amer 71 mL/min >60 [facility] Work Phone: Comment on above: Non- GFR Calc Platelets bldon 11-06-2021 Platelets (Bld) [#/Vol] 238 10*3/uL 150-450 [facility] Work Phone: Serum or plasma albumin bharath urement (mass/volume)on 11-06-2021 Albumin [Mass/Vol] 3.8 g/dL 3.2-5.0 [facility] Work Phone: Serum or plasma albumin/glob ulin mass ratioon 11-06-2021 Albumin/Globulin [Mass ratio] 1.2 {ratio} 0.9-2.4 [facility] Work Phone: Serum or plasma calcium bharath urement (mass/volume)on 11-06-2021 Calcium [Mass/Vol] 9.3 mg/dL 8.5-10.1 [facility] Work Phone: Serum or plasma cholesterol in HDL measurement (mass/volume)on 11-06-2021 Cholesterol in HDL [Mass/Vol] 43 mg/dL >40 [facility] Work Phone: Comment on above: The drugs N-Acetylcy steine and Metamizole may falsely depress this assay. Reference Range HDL <40 mg/dL Low HDL Cholesterol HDL >or= 60 mg/dL High HDL Cholesterol Serum or plasma cholesterol in VLDL measurement (mass/volume)on 11-06-2021 Cholesterol in VLDL [Mass/Vol] 28 mg/dL 5-40 [facility] Work Phone: Serum or plasma creatinine m easurement (mass/volume)on 11-06-2021 Creatinine [Mass/Vol] 0.91 mg/dL 0.55-1.02 [facility] Work Phone: Comment on above: The validity of the calculated GFR & GFRAA in patients over 70 years has not been determined. Clinical correlation is essential. Serum or plasma low density lipoprotein (LDL) cholesterol measurement (mass/volume)on 11-06-2021 Cholesterol in LDL [Mass/Vol] 90 mg/dL 0-130 [facility] Work Phone: Serum or plasma urea nitroge n measurement (mass/volume)on 11-06-2021 Urea nitrogen [Mass/Vol] 12 mg/dL 7-18 [facility] Work Phone: Thin prep Papanicolaou smear with manual screeningon 11-06-2021 Thin prep Papanicolaou smear with manual screening 15 U/L 15-37 [facility] Work Phone: Thin prep Papanicolaou smear with manual screening 6 5-15 [facility] Work Phone: Marce 12-28-2018 CNOV Office Visit ([facility]) ---- BECKY,September ([id number]) 1975 F Date Time Provider Department 12/28/18 10:45 AM GINNY SHANNON (PATTIE) [facility] During your visit today, we recorded the following information about you: Temperature Pulse Respiration Blood pressure 97.7 degrees 64/minute 12/minute 118/84 Weight 86.2 kg Ginny Shannon PA-C 12/28/2018 12:41 PM Signed Subjective HPI Pt presents with left ear pain for 3 days. She did go swimming yesterday. She has had a history of eustachian tube dysfunction and has seen ENT for it. She takes Claritin d daily. No fevers or chills. No drainage from the ear. Review of Systems Constitutional: Negative for fever. HENT: Positive for ear pain and hearing loss. Negative for congestion, ear discharge and sore throat. Respiratory: Negative for cough. All other systems reviewed and are negative. PAST MEDICAL HISTORY Diagnosis Date - Celiac disease - Umbilical hernia Current Outpatient Medications Medication Sig Dispense Refill - loratadine/pseudoep hedrine (CLARITIN-D 24 HOUR ORAL) Take by mouth. - Cholecalciferol, Vitamin D3, (VITAMIN D-3) 2,000 unit cap Take by mouth. 0 - multivitamins(DAILY VITAMIN TAB) Take one(1) tablet daily. 0 - calcium carb/vit d3/minerals(CALTRAT E 600+D PLUS MINERALS 600 MG (1,500 MG)-400 UNIT CHEWABLE TAB) Take one tablet daily 0 - cefdinir (OMNICEF) 300 mg capsule Take 1 capsule by mouth twice daily for 10 days. 20 capsule 0 - ofloxacin (FLOXIN) 0.3 % otic solution Use 5 Drops in the left ear twice daily for 7 days. 1 Bottle 0 No current facility-administer ed medications for this visit. PAST SURGICAL HISTORY Procedure Laterality Date - EGD 05/2009 - PAST SURGICAL HISTORY OF 2011 abalation - REPAIR UMBILICAL KATERINA,5+Y/O,REDUC 08/08/09 simple FAMILY HISTORY Problem Relation Age of Onset - Diabetes Mother - Diabetes Maternal Grandmother - Stroke Maternal Grandmother - Cancer Maternal Grandfather Social History Tobacco Use - Smoking status: Never Smoker - Smokeless tobacco: Never Used Substance Use Topics - Alcohol use: Yes Comment: occasionally - Drug use: No BP 118/84 Pulse 64 Temp 36.5 ?C (97.7 ?F) (Right Tympanic) Resp 12 Wt 86.2 kg (190 lb) BMI 35.90 kg/m? Objective Physical Exam Constitutional: She is well-developed, well-nourished, and in no distress. HENT: Head: Normocephalic and atraumatic. Right Ear: Tympanic membrane, external ear and ear canal normal. Left Ear: External ear normal. Nose: Nose normal. Mouth/Throat: Uvula is midline, oropharynx is clear and moist and mucous membranes are normal. Pt has effusion with erythema behind the left tm. There is also redness and moderate swelling of the EAC. No perforation of the TM. No mastoid tenderness. Neck: Normal range of motion. Neck supple. Cardiovascular: Normal rate, regular rhythm and normal heart sounds. Pulmonary/Chest: Effort normal and breath sounds normal. Neurological: She is alert. Skin: Skin is warm and dry. No rash noted. Nursing note and vitals reviewed. ASSESSMENT/PLAN: 1. Acute otitis externa of left ear, unspecified type - ICD9: 380.10, ICD10: H60.502 (primary diagnosis) Given ofloxacin drops. No swimming or getting the ear wet for 1 week. 2. Acute otitis media, left - ICD9: 382.9, ICD10: H66.92 - Will begin treatment with as per antibiotic as written, see orders - Supportive care with plenty of fluids, rest, and analgesia prn. - Follow up in one week if symptoms persist or worsen. ABBI [facility] Referring Provider: SELF [[id number]] Allergies As of Date: 12/28/2018 Noted Allergy Reaction environmental [Other] 08/01/2006 PENICILLIN G 08/01/2006 4 - Hives SULFA (SULFONAMIDE ANTIBIOTICS) 02/05/2013 2 - Rash Date Reviewed: 12/28/2018 Reviewed by: Linh Belcher Ma - Fully Assessed Reason for Visit: Ear Pain [817] Primary Visit Diagnosis:Acute otitis externa of left ear, unspecified type [H60.502] Other Visit Diagnosis:Acute otitis media, left [H66.92] Order(s):cefdinir (OMNICEF) 300 mg capsuleTake 1 capsule by mouth twice daily for 10 days.Disp: 20 capsuleRfl: 0 ofloxacin (FLOXIN) 0.3 % otic solutionUse 5 Drops in the left ear twice daily for 7 days.Disp: 1 BottleRfl: 0 Prescriptions as of 12/28/2018 Sig: CLARITIN-D 24 HOUR ORAL Take by mouth. CHOLECALCIFEROL (VITAMIN D3) * Take by mouth. * DAILY VITAMIN TABLET Take one(1) tablet daily. 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 OFLOXACIN 0.3 % EAR DROPS 1 Jordi* 0 12/28/2018 01/04/2019 Route: LEFT EAR Sig: Use 5 Drops in the left ear twice daily for 7 days. Encounter Status:Closed by GINNY SHANNON PA-C on 12/28/[address] [facility] PROGRESSon 12-28-2018 PROGRESS HNO ID: [id number] Author: Ginny Shannon (Pa) Service: ? Author Type: Physician Director Appointment Type: Progress Notes Filed: 12/28/2018 12:41 PM Note Text: Subjective HPI Pt presents with left ear pain for 3 days. She did go swimming yesterday. She has had a history of eustachian tube dysfunction and has seen ENT for it. She takes Claritin d daily. No fevers or chills. No drainage from the ear. Review of Systems Constitutional: Negative for fever. HENT: Positive for ear pain and hearing loss. Negative for congestion, ear discharge and sore throat. Respiratory: Negative for cough. All other systems reviewed and are negative. PAST MEDICAL HISTORY Diagnosis Date - Celiac disease - Umbilical hernia Current Outpatient Medications Medication Sig Dispense Refill - loratadine/pseudoep hedrine (CLARITIN-D 24 HOUR ORAL) Take by mouth. - Cholecalciferol, Vitamin D3, (VITAMIN D-3) 2,000 unit cap Take by mouth. 0 - multivitamins(DAILY VITAMIN TAB) Take one(1) tablet daily. 0 - calcium carb/vit d3/minerals(CALTRAT E 600+D PLUS MINERALS 600 MG (1,500 MG)-400 UNIT CHEWABLE TAB) Take one tablet daily 0 - cefdinir (OMNICEF) 300 mg capsule Take 1 capsule by mouth twice daily for 10 days. 20 capsule 0 - ofloxacin (FLOXIN) 0.3 % otic solution Use 5 Drops in the left ear twice daily for 7 days. 1 Bottle 0 No current facility-administer ed medications for this visit. PAST SURGICAL HISTORY Procedure Laterality Date - EGD 05/2009 - PAST SURGICAL HISTORY OF 2011 abalation - REPAIR UMBILICAL KATERINA,5+Y/O,REDUC 08/08/09 simple FAMILY HISTORY Problem Relation Age of Onset - Diabetes Mother - Diabetes Maternal Grandmother - Stroke Maternal Grandmother - Cancer Maternal Grandfather Social History Tobacco Use - Smoking status: Never Smoker - Smokeless tobacco: Never Used Substance Use Topics - Alcohol use: Yes Comment: occasionally - Drug use: No BP 118/84 Pulse 64 Temp 36.5 ?C (97.7 ?F) (Right Tympanic) Resp 12 Wt 86.2 kg (190 lb) BMI 35.90 kg/m? Objective Physical Exam Constitutional: She is well-developed, well-nourished, and in no distress. HENT: Head: Normocephalic and atraumatic. Right Ear: Tympanic membrane, external ear and ear canal normal. Left Ear: External ear normal. Nose: Nose normal. Mouth/Throat: Uvula is midline, oropharynx is clear and moist and mucous membranes are normal. Pt has effusion with erythema behind the left tm. There is also redness and moderate swelling of the EAC. No perforation of the TM. No mastoid tenderness. Neck: Normal range of motion. Neck supple. Cardiovascular: Normal rate, regular rhythm and normal heart sounds. Pulmonary/Chest: Effort normal and breath sounds normal. Neurological: She is alert. Skin: Skin is warm and dry. No rash noted. Nursing note and vitals reviewed. ASSESSMENT/PLAN: 1. Acute otitis externa of left ear, unspecified type - ICD9: 380.10, ICD10: H60.502 (primary diagnosis) Given ofloxacin drops. No swimming or getting the ear wet for 1 week. 2. Acute otitis media, left - ICD9: 382.9, ICD10: H66.92 - Will begin treatment with as per antibiotic as written, see orders - Supportive care with plenty of fluids, rest, and analgesia prn. - Follow up in one week if symptoms persist or worsen. Ginny Shannon PA-C [facility] CNOVon 10-24-2018 CNOV Office Visit ([facility]) ---- BECKYKIMMIE Anai ([id number]) 1975 F Date Time Provider Department 10/24/18 6:45 PM GINNY SHANNON (PATTIE) [facility] During your visit today, we recorded the following information about you: Temperature Pulse Respiration Blood pressure 97.6 degrees 72/minute 16/minute 124/76 Weight 89.5 kg Ginny Shannon PA-C 10/24/2018 7:01 PM Signed Subjective HPI Patient presents with the chief complaint of right ear pain. This has been going on for 2 days. She had seen ENT before they told her she had a sluggish eustachian tube. She states she had a bad ear infection a couple years ago and since then has had some problems with her ear. She denies any recent swimming. She did have some sinus congestion over the past week but that has improved with Claritin-D. No drainage out of the ear. Review of Systems Constitutional: Negative for chills and fever. HENT: Positive for congestion and ear pain. Negative for ear discharge, hearing loss, sinus pain and sore throat. Respiratory: Negative for cough. All other systems reviewed and are negative. PAST MEDICAL HISTORY Diagnosis Date - Celiac disease - Umbilical hernia Current Outpatient Medications: Cholecalciferol, Vitamin D3, (VITAMIN D-3) 2,000 unit cap Take by mouth. Disp: Rfl: 0 multivitamins(DAILY VITAMIN TAB) Take one(1) tablet daily. Disp: Rfl: 0 calcium carb/vit d3/minerals(CALTRAT E 600+D PLUS MINERALS 600 MG (1,500 MG)-400 UNIT CHEWABLE TAB) Take one tablet daily Disp: Rfl: 0 No current facility-administer ed medications for this visit. PAST SURGICAL HISTORY Procedure Laterality Date - EGD 05/2009 - PAST SURGICAL HISTORY OF 2011 abalation - REPAIR UMBILICAL KATERINA,5+Y/O,REDUC 08/08/09 simple FAMILY HISTORY Problem Relation Age of Onset - Diabetes Mother - Diabetes Maternal Grandmother - Stroke Maternal Grandmother - Cancer Maternal Grandfather Social History Tobacco Use - Smoking status: Never Smoker - Smokeless tobacco: Never Used Substance Use Topics - Alcohol use: Yes Comment: occasionally - Drug use: No BP 124/76 Pulse 72 Temp 36.4 ?C (97.6 ?F) (Left Tympanic) Resp 16 Wt 89.5 kg (197 lb 6.4 oz) BMI 37.30 kg/m? Objective Physical Exam Constitutional: She is oriented to person, place, and time and well-developed, well-nourished, and in no distress. HENT: Head: Atraumatic. Right Ear: Tympanic membrane, external ear and ear canal normal. Left Ear: Tympanic membrane, external ear and ear canal normal. Nose: Nose normal. Mouth/Throat: Uvula is midline, oropharynx is clear and moist and mucous membranes are normal. Neck: Normal range of motion. Neck supple. Cardiovascular: Normal rate, regular rhythm and normal heart sounds. Pulmonary/Chest: Breath sounds normal. Neurological: She is alert and oriented to person, place, and time. Skin: Skin is warm and dry. Psychiatric: Affect and judgment normal. Nursing note and vitals reviewed. ASSESSMENT/PLAN: 1. Eustachian tube dysfunction, right - ICD9: 381.81, ICD10: H69.81 Discussed continuing the Claritin-D and her nasal spray. Also discussed swallowing exercises and chewing gum. If not better over the next week recommend following up with ENT. She is agreeable to this plan. Ginny Shannon PA-C Referring Provider: SELF [200] Allergies As of Date: 10/24/2018 Noted Allergy Reaction environmental [Other] 08/01/2006 PENICILLIN G 08/01/2006 4 - Hives SULFA (SULFONAMIDE ANTIBIOTICS) 02/05/2013 2 - Rash Date Reviewed: 10/24/2018 Reviewed by: Salima Norwood Ma - Fully Assessed Reason for Visit: Ear Problem [38] Cmt: RIGHT ear pain x 2 days Primary Visit Diagnosis:Eustachia n tube dysfunction, right [H69.81] Prescriptions as of 10/24/2018 Sig: CHOLECALCIFEROL (VITAMIN D3) * Take by mouth. * DAILY VITAMIN TABLET Take one(1) tablet daily. 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 Author Type: Physician Director Appointment Type: Progress Notes Filed: 10/24/2018 7:01 PM Note Text: Subjective HPI Patient presents with the chief complaint of right ear pain. This has been going on for 2 days. She had seen ENT before they told her she had a sluggish eustachian tube. She states she had a bad ear infection a couple years ago and since then has had some problems with her ear. She denies any recent swimming. She did have some sinus congestion over the past week but that has improved with Claritin-D. No drainage out of the ear. Review of Systems Constitutional: Negative for chills and fever. HENT: Positive for congestion and ear pain. Negative for ear discharge, hearing loss, sinus pain and sore throat. Respiratory: Negative for cough. All other systems reviewed and are negative. PAST MEDICAL HISTORY Diagnosis Date - Celiac disease - Umbilical hernia Current Outpatient Medications: Cholecalciferol, Vitamin D3, (VITAMIN D-3) 2,000 unit cap Take by mouth. Disp: Rfl: 0 multivitamins(DAILY VITAMIN TAB) Take one(1) tablet daily. Disp: Rfl: 0 calcium carb/vit d3/minerals(CALTRAT E 600+D PLUS MINERALS 600 MG (1,500 MG)-400 UNIT CHEWABLE TAB) Take one tablet daily Disp: Rfl: 0 No current facility-administer ed medications for this visit. PAST SURGICAL HISTORY Procedure Laterality Date - EGD 05/2009 - PAST SURGICAL HISTORY OF 2011 abalation - REPAIR UMBILICAL KATERNIA,5+Y/O,REDUC 08/08/09 simple FAMILY HISTORY Problem Relation Age of Onset - Diabetes Mother - Diabetes Maternal Grandmother - Stroke Maternal Grandmother - Cancer Maternal Grandfather Social History Tobacco Use - Smoking status: Never Smoker - Smokeless tobacco: Never Used Substance Use Topics - Alcohol use: Yes Comment: occasionally - Drug use: No BP 124/76 Pulse 72 Temp 36.4 ?C (97.6 ?F) (Left Tympanic) Resp 16 Wt 89.5 kg (197 lb 6.4 oz) BMI 37.30 kg/m? Objective Physical Exam Constitutional: She is oriented to person, place, and time and well-developed, well-nourished, and in no distress. HENT: Head: Atraumatic. Right Ear: Tympanic membrane, external ear and ear canal normal. Left Ear: Tympanic membrane, external ear and ear canal normal. Nose: Nose normal. Mouth/Throat: Uvula is midline, oropharynx is clear and moist and mucous membranes are normal. Neck: Normal range of motion. Neck supple. Cardiovascular: Normal rate, regular rhythm and normal heart sounds. Pulmonary/Chest: Breath sounds normal. Neurological: She is alert and oriented to person, place, and time. Skin: Skin is warm and dry. Psychiatric: Affect and judgment normal. Nursing note and vitals reviewed. ASSESSMENT/PLAN: 1. Eustachian tube dysfunction, right - ICD9: 381.81, ICD10: H69.81 Discussed continuing the Claritin-D and her nasal spray. Also discussed swallowing exercises and chewing gum. If not better over the next week recommend following up with ENT. She is agreeable to this plan. Ginny Shannon PA-C [facility] Vital Signs Date Time Vital Sign Value Performing Clinician Esme sauceda 01-25-2025 15:34-0400 Body height 152.[address] Marisel Rowe DO Work Phone: [facility] 01-25-2025 15:34-0400 Body mass index (BMI) [Ratio] 37.5 kg/m2 Dr. Marisel Rowe DO Work Phone: [facility] 01-25-2025 15:34-0400 Body weight 87.[address] Marisel Rowe DO Work Phone: [facility] 01-25-2025 15:34-0400 Diastolic blood pressure 82 mm[Hg] Dr. Marisel Rowe DO Work Phone: [facility] 01-25-2025 15:34-0400 Heart rate 80 /min Dr. Marisel Rowe DO Work Phone: [facility] 01-25-2025 15:34-0400 Respiratory rate 16 /min Dr. Marisel Rowe DO Work Phone: [facility] 01-25-2025 15:34-0400 Systolic blood pressure 134 mm[Hg] Dr. Marisel Rowe DO Work Phone: [facility] 05-09-2022 11:01-0500 Body height 160.[address] Marisel Rowe Work Phone: [facility] Work Phone: 05-09-2022 11:01-0500 Body mass index (BMI) [Ratio] 35.7 kg/m2 Dr. Marisel Rowe Work Phone: [facility] Work Phone: 05-09-2022 11:01-0500 Body weight 91.[address] Marisel Rowe Work Phone: [facility] Work Phone: 05-09-2022 11:01-0500 Diastolic blood pressure 68 mm[Hg] Dr. Marisel Rowe Work Phone: [facility] Work Phone: 05-09-2022 11:01-0500 Heart rate 63 /min Dr. Marisel Rowe Work Phone: [facility] Work Phone: 05-09-2022 11:01-0500 Respiratory rate 18 /min Dr. Marisel Rowe Work Phone: [facility] Work Phone: 05-09-2022 11:01-0500 SaO2% (BldA) [Mass fraction] 97 % Dr. Marisel Rowe Work Phone: [facility] Work Phone: 05-09-2022 11:01-0500 Systolic blood pressure 123 mm[Hg] Dr. Marisel Rowe Work Phone: [facility] Work Phone: 12-14-2021 15:30-0400 Diastolic blood pressure 81 mm[Hg] Dr. Marisel Rowe Work Phone: [facility] Work Phone: 12-14-2021 15:30-0400 Heart rate 70 /min Dr. Marisel Rowe Work Phone: [facility] Work Phone: 12-14-2021 15:30-0400 Respiratory rate 16 /min Dr. Marisel Rowe Work Phone: [facility] Work Phone: 12-14-2021 15:30-0400 SaO2% (BldA) [Mass fraction] 100 % Dr. Marisel Rowe Work Phone: [facility] Work Phone: 12-14-2021 15:30-0400 Systolic blood pressure 132 mm[Hg] Dr. Marisel Rowe Work Phone: [facility] Work Phone: 12-14-2021 15:26-0400 Body temperature 97 [degF] Dr. Marisel Rowe Work Phone: [facility] Work Phone: 12-14-2021 13:17-0400 Body height 160.[address] Marisel Rowe Work Phone: [facility] Work Phone: 12-14-2021 13:17-0400 Body mass index (BMI) [Ratio] 35.9 kg/m2 Dr. Marisel Rowe Work Phone: [facility] Work Phone: 12-14-2021 13:17-0400 Body weight [address] Marisel Rowe Work Phone: [facility] Work Phone: 11-17-2021 10:59-0400 Body mass index (BMI) [Ratio] 35.7 kg/m2 Dr. Marisel Rowe Work Phone: [facility] Work Phone: 11-17-2021 10:59-0400 Body weight 91.[address] Marisel Rowe Work Phone: [facility] Work Phone: 11-17-2021 10:59-0400 Diastolic blood pressure 77 mm[Hg] Dr. Marisel Rowe Work Phone: [facility] Work Phone: 11-17-2021 10:59-0400 Heart rate 64 /min Dr. Marisel Rowe Work Phone: [facility] Work Phone: 11-17-2021 10:59-0400 Respiratory rate 18 /min Dr. Marisel Rowe Work Phone: [facility] Work Phone: 11-17-2021 10:59-0400 SaO2% (BldA) [Mass fraction] 99 % Dr. Marisel Rowe Work Phone: [facility] Work Phone: 11-17-2021 10:59-0400 Systolic blood pressure 121 mm[Hg] Dr. Marisel Rowe Work Phone: [facility] Work Phone: 09-07-2021 15:59-0400 Body mass index (BMI) [Ratio] 35.4 kg/m2 Dr. Marisel Rowe Work Phone: [facility] Work Phone: 09-07-2021 15:59-0400 Body weight 90.[address] Marisel Rowe Work Phone: [facility] Work Phone: 09-07-2021 15:59-0400 Diastolic blood pressure 74 mm[Hg] Dr. Marisel Rowe Work Phone: [facility] Work Phone: 09-07-2021 15:59-0400 Heart rate 70 /min Dr. Marisel Rowe Work Phone: [facility] Work Phone: 09-07-2021 15:59-0400 Respiratory rate 18 /min Dr. Marisel Rowe Work Phone: [facility] Work Phone: 09-07-2021 15:59-0400 SaO2% (BldA) [Mass fraction] 97 % Dr. Marisel Rowe Work Phone: [facility] Work Phone: 09-07-2021 15:59-0400 Systolic blood pressure 124 mm[Hg] Dr. Marisel Rowe Work Phone: [facility] Work Phone: 09-07-2021 15:59-0400 Body height 160.[address] Marisel Rowe Work Phone: [facility] Work Phone: 09-07-2021 15:59-0400 Body mass index (BMI) [Ratio] 35.4 kg/m2 Dr. Marisel Rowe Work Phone: [facility] Work Phone: 09-07-2021 15:59-0400 Body weight 90.[address] Marisel Rowe Work Phone: [facility] Work Phone: 09-07-2021 15:59-0400 Diastolic blood pressure 74 mm[Hg] Dr. Marisel Rowe Work Phone: [facility] Work Phone: 09-07-2021 15:59-0400 Heart rate 70 /min Dr. Marisel Rowe Work Phone: [facility] Work Phone: 09-07-2021 15:59-0400 Respiratory rate 18 /min Dr. Marisel Rowe Work Phone: [facility] Work Phone: 09-07-2021 15:59-0400 SaO2% (BldA) [Mass fraction] 97 % Dr. Marisel Rowe Work Phone: [facility] Work Phone: 09-07-2021 15:59-0400 Systolic blood pressure 124 mm[Hg] Dr. Marisel Rowe Work Phone: [facility] Work Phone: Encounters Encounter Date Encounter Type Care Provider Facility Start: 04-25-2025 End: 04-25-2025 ambulatory Chris Adamson NP Facility:[facility] Start: 01-25-2025 End: 01-25-2025 Patient encounter procedure Chris Adamson PHYSICAL THERAPY AIDES TEACHER-C -[facility] Work Phone: Start: 01-25-2025 End: 01-25-[address] Marisel Rowe DO Work Phone: -[facility] Start: 12-15-2024 Non-patient / Non-visit Dr. Rahel see MD -[facility] Work Phone: Start: 12-07-2024 End: 12-07-[address] Marisel Rowe DO Work Phone: -[facility] Start: 12-07-2024 End: 12-07-[address] Marisel Rowe DO -[facility] Work Phone: Start: 12-07-2024 End: 12-07-2024 ambulatory Marisel Rowe Facility:[facility] Start: 11-17-2024 Encounter for genera l adult medical examination without [facility] Start: 11-11-2024 End: 11-11-[address] Marisel Rowe DO Work Phone: [facility] Work Phone: Start: 11-11-2024 End: 11-11-[address] Marisel Rowe DO -[facility] [place] Work Phone: Start: 11-11-2024 End: 11-11-2024 ambulatory Marisel Rowe Facility:[facility] Start: 08-06-2024 End: 08-06-[address] Gumaro Hooker MD -[facility] Work Phone: Start: 08-06-2024 End: 08-06-2024 ambulatory Gumaro Hooker Facility:[facility] Start: 06-23-2024 End: 06-23-2024 ambulatory Marisel Rowe Facility:[facility] Start: 05-01-2024 End: 05-01-2024 ambulatory Rohan BLANKENSHIP Facility:[facility] Start: 10-12-2022 End: 10-12-[address] [facility] Work Phone: Start: 10-12-2022 End: 10-12-2022 [facility] Start: 05-09-2022 End: 05-09-[address] Marisel Rowe Work Phone: [facility] Start: 12-14-2021 End: 12-14-2021 Admission to same day surgery center [facility] Marisel [facility] Start: 11-17-2021 End: 11-17-[address] Marisel Rowe Work Phone: [facility] Start: 11-06-2021 End: 11-06-[address] Marisel Rowe Work Phone: [facility] Start: 09-07-2021 End: 09-07-[address] Marisel Rowe Work Phone: [facility] Start: 07-18-2021 End: 07-18-[address] Marisel Rowe Work Phone: [facility] Procedures Date Procedure Procedure Detail Performing Clinician Start: 12-07-2024 Screening mammography Anai Rowe DO Work Phone: Start: 08-06-2024 Dual energy X-ray absorptiometry Dr. Marisel Rowe DO Work Phone: Start: 12-14-2021 Vaginal Sling, Tensi on Free,Cysto (Not Applicable) Dr. Marisel Rowe Work Phone: Start: 07-18-2021 Screening mammography Anai Rowe Work Phone: Plan of Treatment Date Care Activity Detail Author Start: 12-14-2021 Patient discharge [facility] Work Phone: Patient referral [facility] Work Phone: Payers Date Payer Category Payer Unknown [id number] 2024 Private Health Insurance [id number] 2024 Self-pay [id number] Unknown [id number] Unknown [id number] [id number] [id number] Unknown [id number] 2.16.8 [id number] Unknown [id number] 2.16.8 [id number] Unknown [id number] 2.16.8 [id number] Unknown [id number] 2.16.8 [id number] Unknown [id number] 2.16.8 [id number] Unknown [id number] 2.16.8 [id number] Social History Date Type Detail Facility Start: 09-07-2021 End: 05-09-2022 Tobacco smoking status NHIS Unknown if ever smoked [facility] Start: 1975 Sex Assigned At Female W [facility] Start: 07-31-2023 Tobacco smoking stat us NHIS Never smoked tobacco (finding) [facility] Medical Equipment Procedure Code Equipment Code Equipment Origin al Text Equipment Identifier Dates SLING, ALTIS VAGINAL FDA Star t: 12-14-2021 SLING, ALTIS VAGINAL FDA Star t: 12-14-2021 SLING, ALTIS VAGINAL FDA Star t: 12-14-2021 SLING, ALTIS VAGINAL FDA Star t: 12-14-2021 SLING, ALTIS VAGINAL FDA Star t: 12-14-2021 Goals Date Patient Goal Desired Activity /State Mental Status Date Assessment Result Facility 12-14-2021 Cognitive function Voice/Name [facility] Work Phone: Evaluation note Note Date & Type Note Facility Evaluation note Diagnosis Onset Date Essential hypertension acute [facility] Work Phone: Evaluation note Note Date & Type Note Facility Evaluation note Diagnosis Onset Date Essential hypertension acute Essential hypertension acute WAN (stress urinary incontinence, female) acute [facility] Work Phone: Evaluation note Note Date & Type Note Facility Evaluation note No assessment information availa ble [facility] Work Phone: Evaluation note Note Date & Type Note Facility Evaluation note Diagnosis Onset Date Resolution Essential hypertension acute Au steve 2024 3:31pm [facility] Work Phone: Reason for referral (narrative) Note Date & Type Note Facility Reason for referral (narrative) No reason for referral information available [facility] Work Phone: Summary Purpose Family History No Family History Records Found Relationship Condition Age at Onset Recorded Date/T kenneth brother Myocardial infarction 80 father Coronary artery disease Unknown Myocardial infarction Unknown grandmother Myocardial infarction Unknown Advance Directives No Advanced Directives Records Found Advance Directive Response Recorded Date/ Time Name of Medical Power of Mingler Operator Mother December 07, 2021 1:09pm Living Will Yes December 07, 2021 1:09pm Power of Mingler Operator Yes December 07 1:09pm Advance Directive Response Recorded Date/ Time Living Will Yes December 07, 2021 12:09pm Power of Mingler Operator Yes December 07 12:09pm Advance Directive Response Recorded Date/ Time Living Will Yes December 07, 2021 1:09pm Power of Mingler Operator Yes December 07 1:09pm Chief Complaint and Reason for Visit Chief Complaint SCREENING 3 M FU Reason for Visit Essential hypertensi on Chief Complaint 3 M FU 3 M FU SLING, CYSTO Reason for Visit Essential hypertensi on Essential hypertension WAN (stress urinary incontinence, female) Chief Complaint 6 M FU Reason for Visit Essential hypertensi on Chief Complaint Admit Date CELIAC August 06, 2024 4:20pm FASTING November 11, 2024 7:01a m Chief Complaint Admit Date FASTING May 28th, 2025 7:01a m SCREENING December 07, 2024 2:36 pm Chief Complaint Admit Date FASTING November 11, 2024 7:01a m SCREENING December 07, 2024 2:36 pm 18 M FU January 25, 2025 3: 31pm Reason for Visit Admit Date Essential hypertension January 25, 2025 3:31pm Additional Source Comments INFORMATION SOURCE (unrecogn ized section and content) DATE CREATED AUTHOR 01/05/2019 [facility] DATE CREATED AUTHOR AUTHOR'S ORGANIZ ATION 04/26/2025 [facility] Goals (unrecognized section and content) Goals may be documented in a n alternate sectionGoals may be documented in an alternate sectionGoals may be documented in an alternate sectionGoals may be documented in an alternate sectionGoals may be documented in an alternate sectionGoals may be documented in an alternate section Care Teams (unrecognized sec tion and content) Team Status: Active Member Role Status Dates Dr. Marisel Rowe DO Family Provider Active Dr. Marisel Rowe DO Primary Care Provider Active Team Status: Inactive Member Role Status Dates Dr. Marisel Rowe DO Primary Care Provide r, Attending Provider, Referring Provider Active Team Status: Active Member Role Status Dates Dr. Marisle Rowe DO Primary Care Provider Active Team Status: Inactive Member Role Status Dates Dr. Marisel Rowe DO Primary Care Provider Active Start: August 06, 2024 End: August 06, 2024 Dr. Gumaro Hooker MD Attending Provider Active Start: August 06, 2024 End: August 06, 2024 Dr. Gumaro Hooker MD Referring Provider Active Start: August 06, 2024 End: August 06, 2024 Team Status: Inactive Member Role Status Dates Dr. Marisel Rowe DO Primary Care Provider Active Start: November 11, 2024 End: November 11, 2024 Dr. Marisel Rowe DO Attending Provider Active St art: November 11, 2024 End: November 11, 2024 Dr. Marisel Rowe DO Referring Provider Active St art: November 11, 2024 End: November 11, 2024 Team Status: Active Member Role/Relationship Status Dates Dr. Marisel Rowe DO Primary Care Provider Active Team Status: Inactive Member Role/Relationship Status Dates Dr. Marisel Rowe DO Primary Care Provider Active Start: November 11, 2024 End: November 11, 2024 Dr. Marisel Rowe DO Attending Provider Active St art: November 11, 2024 End: November 11, 2024 Dr. Marisel Rowe DO Referring Provider Active St art: November 11, 2024 End: November 11, 2024 Team Status: Inactive Member Role/Relationship Status Dates Dr. Marisel Rowe DO Primary Care Provider Active Start: December 07, 2024 End: December 07, 2024 Dr. Marisel Rowe DO Attending Provider Active St art: December 07, 2024 End: December 07, 2024 Dr. Marisel Rowe DO Referring Provider Active St art: December 07, 2024 End: December 07, 2024 Team Status: Inactive Member Role/Relationship Status Dates Dr. Marisel Rowe DO Primary Care Provider Active Start: December 15, [address] MD Attending Provider Active Start: December 15, 2024 Team Status: Inactive Member Role/Relationship Status Dates Dr. Marisel Rowe DO Primary Care Provider Active Start: January 25, 2025 End: January 25, 2025 Dr. Marisel Rowe DO Referring Provider Active St art: January 25, 2025 End: January 25, 2025 Chris Adamson NP, PHYSICAL THERAPY AIDES TEACHER-C Attending Provider Active S tart: January 25, 2025 End: January 25, 2025 FOR RECORDS PERTAINING TO PATIENTS WHO ARE OR HAVE BEEN ENROLLED IN A CHEMICAL DEPENDENCY/SUBSTANCEABUSE PROGRAM, SOME INFORMATION MAY BE OMITTED. This clinical summary was aggregated from multiple sources. Caution should be exercised in using it in the provision of clinical care. This summary normalizes information from multiple sources, and as a consequence, information in this document may materially change the coding, format and clinical context of patient data. In addition, data may be omitted in some cases. CLINICAL DECISIONS SHOULD BE BASED ON THE PRIMARY CLINICAL RECORDS. [facility] [employer] provides no warranty or guarantee of the accuracy or completeness of information in this document.
[2025-06-05 08:08] LABS: PROGESTERONE 0.9 ng/mL (.)
== END | disposition home or self-care (01) ==
LOC: MTLAB 07:11
PROVIDERS: PCP Family Medicine; Referring Provider Family Medicine; Visit Provider Family Medicine
DX: N95.9 Unspecified menopausal and perimenopausal disorder (principal)
CPT/HCPCS: 36415; 82670; 84144; 84402; 84403